=== PATIENT | female | born 1935 | race Caucasian/White ===

== ENCOUNTER → 2016-12-30 | Outpatient (CLI) | payer OTHER, MEDICARE ==
[~2016-12-30] MED LIST: OPTIRAY 320 IV PRN
--- NOTE | 2016-12-30 15:42 | DIAGNOSTIC IMAGING REPORT ---
CT ANGIOGRAPHY OF THE ABDOMEN AND PELVIS WITH CONTRAST WITH BILATERAL LOWER EXTREMITY RUNOFF CLINICAL HISTORY: Abdominal aortic aneurysm. Peripheral arterial disease with claudication. COMPARISON STUDY: No previous studies for comparison. TECHNIQUE: Initially, unenhanced axial images of the abdomen and pelvis and both lower extremity were obtained. Helical axial images of the abdomen and pelvis and both lower extremities were obtained during arterial phase following intravenous injection of 94 cc of Optiray 320 IV. 2 minute delayed phase imaging of the abdomen and pelvis was performed as per the endovascular protocol. Sagittal and coronal reconstructions were viewed as well as maximal intensity projections on an independent 3-D workstation. FINDINGS: There is made of a 5 mm subpleural nodule within the right lower lobe. This is indeterminate although probably benign. There is subtle nodularity of the liver surface. 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 There is no biliary ductal dilatation status post cholecystectomy. The spleen is mildly enlarged. There is no ascites. The adrenal glands and right kidney are unremarkable. There is moderate left renal atrophy. There is a 9 mm calculus within lower pole of the left kidney. There are no ureteral calculi. There is asymmetric enlargement of the left ovary which measures 4.6 x 2.6 cm. No suspicious osseous lesions are present. Mesenteric infiltration is of doubtful significance. No enlarged abdominal or pelvic lymph nodes are present. Note is made of mild aneurysmal dilatation of the distal descending thoracic aorta that measures 4.2 cm. There are postprocedural findings consistent with placement of aortoiliac stent grafts for an infrarenal abdominal aortic aneurysm. Aneurysm sac measures 6.8 x 6.5 cm. There is no evidence for rupture. The iliac limbs are patent. Note is made of an endoleak along the posterior distal aortic component that measures approximately 4 x 1.1 cm. This is likely at the junction of the aortic and iliac limbs. No additional endoleaks are present. 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 There is severe stenosis of the left renal artery. The right superficial femoral artery is occluded at the vessel origin. There is extensive atherosclerotic plaque within the right lower extremity. The right profunda is patent. Reconstitution at the level of the right popliteal artery through collaterals is noted. There is minimal contrast within the proximal to mid right anterior tibial and peroneal arteries. The right posterior tibial artery is likely occluded. The right dorsalis pedis is likely occluded although the CT scanner may have outrun run the bolus. There is moderate plaque within the left common femoral artery. There is severe stenosis of the proximal left superficial femoral artery. The distal left superficial femoral artery is occluded. The left profunda is patent. There is reconstitution at the level of the left popliteal artery. The left anterior tibial, posterior tibial and peroneal arteries are likely patent. Moderate multifocal stenoses are noted within these vessels. Contrast is present within the distal left posterior tibial artery. The left dorsalis pedis is diminutive but likely patent. IMPRESSION: 1. Postprocedural findings consistent with repair of an infrarenal abdominal aortic aneurysm with endovascular aortoiliac stent grafts. 6.8 x 6.5 cm infrarenal abdominal aortic aneurysm sac. 4 x 1.1 cm endoleak along the posterior distal aortic component. This suggests a type III endoleak. No evidence for rupture. 2. Extensive atherosclerotic disease within each lower extremity with occlusion of the bilateral superficial femoral arteries with reconstitution at the level of the bilateral popliteal arteries, as described above. Markedly diminished flow within the right calf vessels, as detailed above. Relatively preserved flow to the left lower extremity. 3. Severe stenosis of the left renal artery. 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 Mild aneurysmal dilatation of the descending thoracic aorta. 4. Asymmetric left ovarian enlargement. A follow-up pelvic ultrasound is recommended. Electronically signed by: Florencio Wynne M.D. 12/30/2016 3:41 PM Dictated Date/Time: 12/30/2016 2:07 PM
== END | disposition home or self-care (01) ==
LOC: C.CTS 12:15
PROVIDERS: ATTEND Surgery Vascular Surgery
DX: I71.4 Abdominal aortic aneurysm, without rupture (principal); Z98.890 Other specified postprocedural states; I70.203 Unspecified atherosclerosis of native arteries of extremities, bilateral legs; I70.1 Atherosclerosis of renal artery; N83.9 Noninflammatory disorder of ovary, fallopian tube and broad ligament, unspecified

== ENCOUNTER → 2017-01-10 | Day surgery (SDC) | payer OTHER, MEDICARE ==
[~2017-01-10] VITALS: Ht 167.6 cm; Wt 108.0 kg
[~2017-01-10] MED LIST changes: +ALBINS/ INH; +ALBINSX; +ALBUAER; +AMLO-110 PO; +ARTI1SOL11 OPB; +ASPI81TA28 PO; +CALC500C3; +CHOL1000 PO; +CLINDAMYCIN 600 MG/54 ML D5W IV SCH; +CYAN100020; +EPP3/2 IM; +FENTANYL CITRATE INJ 50 MCG/1 ML 2 ML VIAL ONE; +GABA-113 PO; +HEPARIN SOD (PORCINE) 1000 UNIT/ML 10 ML VIAL ONE; +KETO0.0216 OP; +MAGN250T11; +MECL1TAB40 PO; +MIDAZOLAM HCL 1 MG/ML 2ML VIAL ONE; +MONT1TAB3 PO; +OMEG10007 PO; -OPTIRAY 320 IV PRN; +PRAM0.129 PO; +SODIUM CHLORIDE 0.9% 1000ML IV SCH; +THYROID DESICCATED; +VITACAP37; +WARF2.5T8 PO; +WARF5TAB7 PO; +potassium citrate
--- NOTE | 2017-01-10 05:54 | History and Physical ---
History & Physical Date of Service Jan 10, 2017. History & Physical CC: Type I endoleak HPI: Ms. Dillon is complaining of discomfort in her right calf. The patient states that back in 2013, she developed toe discoloration on her right foot. She states that after being evaluated by another physician, she ended up being referred to Dr. Gee at [facility] for intervention. She states that she subsequently underwent an endovascular aneurysm repair through puncture or a stent graft was placed, although she had been completely unaware of any aneurysm prior to this. She states before that procedure, she had been having cramping discomfort in her left buttock and thigh, which would limit her ambulation and that after the procedure, symptom went completely away. She also states that her right foot toe healed. She states that she has also been diagnosed for a number of years with neuropathy in her bilateral lower extremities, although they are unsure what has caused it. She also has a diagnosis of COPD and has severe breathing problems and this also limits her ambulation to some extent. She does state to having calf claudication bilaterally and that this occurs with walking approximately 1 block, although her breathing would cause her to stop at approximately 1 block as it is. She states she is never having been told of any arterial disease in her legs prior to this. The patient states that she quit smoking in the year 1999. She also states that she saw Dr. Gee once or twice after her procedure, but has not had any imaging performed of her stent graft for quite a while. She denies other complaints at this time including headaches, fevers, chills, dizziness, chest pain, shortness of breath, abdominal pain, nausea, vomiting, diarrhea, constipation, dysuria, hematuria, rest pain, nonhealing wounds or ulcers. She does admit a discomfort in her right posterior calf when she presses on the area or when it is up against the footrest on the chair. 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 CTA confirmed a significant endoleak present. ALLERGIES: INCLUDE CRESTOR, DEMEROL, LIPITOR, MORPHINE AND PENICILLIN. HOME MEDICATIONS: Reconciled on the chart and include albuterol for nebulization, amlodipine, artificial tears, aspirin, calcium carbonate, EpiPen 2 pack, fish oil, gabapentin, Genteal ophthalmic gel, magnesium gluconate, meclizine, Mirapex, Nature-Throid, potassium citrate, ProAir HFA inhaler, Singulair, vitamin B12, vitamin D3, vitamin E, Welchol and Zaditor ophthalmic solution. PAST MEDICAL HISTORY: Positive for abdominal aortic aneurysm status post repair , cervical spinal stenosis, chronic back pain, chronic obstructive pulmonary disease, degenerative disk disease, hypothyroidism, irritable bowel syndrome, idiopathic neuropathy, restless leg syndrome, sleep apnea, hypertension. PAST SURGICAL HISTORY: Positive for the abdominal aortic aneurysm endovascular repair in 2014, cataract extractions, cholecystectomy, colonoscopy with polyp removal, dilatation and curettage and excision of lipoma on the forehead and the leg, left wrist open reduction internal fixation, ligament repair in the right knee. SOCIAL HISTORY: Positive for a past history of tobacco use. The patient was smoking 1 pack per day until the year 1999. She says she occasionally has 1 alcoholic beverage, but does not indulge. FAMILY HISTORY: Positive for heart disease, hypertension, celiac sprue, lung disease, arthritis, schizophrenia, glaucoma. REVIEW OF SYSTEMS: Negative for fatigue, fevers, sweats, weight loss, abnormal moles or rashes, vision changes or photophobia, ear pain, sinus problems or sore throat. She does admit to chronic cough and dyspnea on exertion, which is chronic for her. She denies any worsening of this. She denies any chest pain or edema. She denies abdominal pain, nausea, vomiting, diarrhea, constipation, dysuria, hematuria, muscle weakness, headaches, dizziness, or seizures. PHYSICAL EXAMINATION: Her vital signs today were as follows: Blood pressure 128/78 in the right arm, 134/70 in the left, heart rate 72, and oxygen saturation 96% on room air. The patient is 165.1 cm tall and weighs 107.5 kg. Constitutional: In general, the patient is an obese, chronically ill-appearing , elderly female in no acute distress. She ambulates with a cane. She is active, alert and oriented x4 with normal recent and remote memory. Head is normocephalic and atraumatic. Eyes are EOMI. ENMT exam demonstrates no hearing loss, rhinorrhea or pharyngeal erythema. Neck is supple, nontender with midline trachea without masses or crepitus. Lung exam demonstrates no dyspnea, but are significantly decreased throughout. She appears to be breathing rather shallowly. She has no use of accessory muscles and does demonstrate an occasional wheeze. Cardiovascular demonstrates a regular rate and rhythm with a 2/6 systolic ejection murmur. Peripheral pulses are full and equal in all extremities unless otherwise noted, specifically they are normal in her carotid, brachial and radial pulses. Femoral pulses are +1. Distal lower extremity pulses are nonpalpable. She has capillary refill of 4 seconds bilaterally. There is no sign of distal ischemia, discoloration or ulcerations. The patient demonstrates no bruit in her carotid, abdominal or femoral area. Abdomen is soft, nontender with normoactive bowel sounds in all 4 quadrants without guarding or rebound. There is no flank or CVA tenderness. Musculoskeletal exam demonstrates normal tone and strength for age. Bilateral upper extremities demonstrate no cyanosis, edema, clubbing, varicosities or ulcers. Bilateral lower extremities do demonstrate trace to 1+ edema with some skin changes consistent with chronic venous insufficiency. In addition, she does have some visible varicosities. None of these are tender to palpation. The posteromedial proximal calf is mildly tender to palpation, but there is no erythema, no palpable mass, no firm hard cord, no warmth. Neurologic: The patient has grossly intact cranial nerves and grossly intact sensation. ASSESSMENT: 1. Claudication. 2. History of peripheral arterial disease. 3. History of abdominal aortic aneurysm status post percutaneous endovascular aneurysm repair with a Type I enodleak. PLAN: Patient is admitted for arteriography. I have discussed the risks options and benefits of the procedure with the patient. The patient understands the risks options and benefits and agrees to the procedure.
[2017-01-10 05:56] VITALS: BP 172/85; PULSE 64; TEMP 36.7; O2SAT 96; Ht 167.6 cm; Wt 108.0 kg
[2017-01-10 06:31] LABS: CREATININE 1.3 mg/dl (0.60-1.20)
--- NOTE | 2017-01-10 07:19 | Procedure Note ---
Pre-Mod Sedation Assessment General Date of Moderate Sedation: Jan 10, 2017. Vital Signs: Vital Signs Past 12 Hours Date Time Temp Pulse Resp B/P (MAP) Pulse Ox O2 Delivery O2 Flow Rate FiO2 01/10/17 05:56 36.7 64 20 172/85 (114) 96 Room Air Pre-Sedation Airway Assessment Mallampati Classification: Class I ASA Classification: Class II Notes The planned sedation has been discussed with the patient and consent obtained. I have identified the patient, determined the appropriateness of sedation and have assessed the patient immediately prior to the procedure. All medicine(s) and interventions are by my order.
--- NOTE | 2017-01-10 07:19 | History & Physical Bridge Note ---
H&P Re-Evaluation Bridge Note: I have examined the patient, reviewed the History & Physical and in the interval since the performance of the History & Physical I have noted the following changes of clinical significance: No changes noted
[2017-01-10 07:21] LABS: INR 3.4 (0.9-1.1); PARTIAL THROMBOPLASTIN RATIO 1.9
--- NOTE | 2017-01-10 07:42 | Progress Note ---
Progress Note Date of Service Jan 10, 2017. Progress Note INR 3.4 Too high for arteriography due to possible bleeding from puncture site. She understands We will reschedule
== END | disposition home or self-care (01) ==
LOC: C.ACU 04:48
PROVIDERS: ATTEND Surgery Vascular Surgery
DX: T82.898A Other specified complication of vascular prosthetic devices, implants and grafts, initial encounter (principal); Z53.09 Procedure and treatment not carried out because of other contraindication; Y83.1 Surgical operation with implant of artificial internal device as the cause of abnormal reaction of the patient, or of later complication, without mention of misadventure at the time of the procedure

== ENCOUNTER 2017-01-17 05:10 | Day surgery (SDC) | payer OTHER, MEDICARE ==
[2017-01-17] VITALS (8 sets, daily range): BP systolic 121–139; BP diastolic 72–79; PULSE 58–66; TEMP 36.6–36.7; O2SAT 92–95; Ht 167.6 cm; Wt 106.0 kg
[~2017-01-17] VITALS: Ht 167.6 cm; Wt 106.0 kg
[~2017-01-17 05:10] MED LIST changes: -ALBINSX; -CLINDAMYCIN 600 MG/54 ML D5W IV SCH; -FENTANYL CITRATE INJ 50 MCG/1 ML 2 ML VIAL ONE; -HEPARIN SOD (PORCINE) 1000 UNIT/ML 10 ML VIAL ONE; -MIDAZOLAM HCL 1 MG/ML 2ML VIAL ONE; -SODIUM CHLORIDE 0.9% 1000ML IV SCH
--- NOTE | 2017-01-17 05:53 | History and Physical ---
History & Physical Date of Service Jan 17, 2017. History & Physical CC: Type I endoleak HPI: Ms. Dillon is complaining of discomfort in her right calf. The patient states that back in 2013, she developed toe discoloration on her right foot. She states that after being evaluated by another physician, she ended up being referred to Dr. Gee at [facility] for intervention. She states that she subsequently underwent an endovascular aneurysm repair through puncture or a stent graft was placed, although she had been completely unaware of any aneurysm prior to this. She states before that procedure, she had been having cramping discomfort in her left buttock and thigh, which would limit her ambulation and that after the procedure, symptom went completely away. She also states that her right foot toe healed. She states that she has also been diagnosed for a number of years with neuropathy in her bilateral lower extremities, although they are unsure what has caused it. She also has a diagnosis of COPD and has severe breathing problems and this also limits her ambulation to some extent. She does state to having calf claudication bilaterally and that this occurs with walking approximately 1 block, although her breathing would cause her to stop at approximately 1 block as it is. She states she is never having been told of any arterial disease in her legs prior to this. The patient states that she quit smoking in the year 1999. She also states that she saw Dr. Gee once or twice after her procedure, but has not had any imaging performed of her stent graft for quite a while. She denies other complaints at this time including headaches, fevers, chills, dizziness, chest pain, shortness of breath, abdominal pain, nausea, vomiting, diarrhea, constipation, dysuria, hematuria, rest pain, nonhealing wounds or ulcers. She does admit a discomfort in her right posterior calf when she presses on the area or when it is up against the footrest on the chair. 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 CTA confirmed a significant endoleak present. ALLERGIES: INCLUDE CRESTOR, DEMEROL, LIPITOR, MORPHINE AND PENICILLIN. HOME MEDICATIONS: Reconciled on the chart and include albuterol for nebulization, amlodipine, artificial tears, aspirin, calcium carbonate, EpiPen 2 pack, fish oil, gabapentin, Genteal ophthalmic gel, magnesium gluconate, meclizine, Mirapex, Nature-Throid, potassium citrate, ProAir HFA inhaler, Singulair, vitamin B12, vitamin D3, vitamin E, Welchol and Zaditor ophthalmic solution. PAST MEDICAL HISTORY: Positive for abdominal aortic aneurysm status post repair , cervical spinal stenosis, chronic back pain, chronic obstructive pulmonary disease, degenerative disk disease, hypothyroidism, irritable bowel syndrome, idiopathic neuropathy, restless leg syndrome, sleep apnea, hypertension. PAST SURGICAL HISTORY: Positive for the abdominal aortic aneurysm endovascular repair in 2014, cataract extractions, cholecystectomy, colonoscopy with polyp removal, dilatation and curettage and excision of lipoma on the forehead and the leg, left wrist open reduction internal fixation, ligament repair in the right knee. SOCIAL HISTORY: Positive for a past history of tobacco use. The patient was smoking 1 pack per day until the year 1999. She says she occasionally has 1 alcoholic beverage, but does not indulge. FAMILY HISTORY: Positive for heart disease, hypertension, celiac sprue, lung disease, arthritis, schizophrenia, glaucoma. REVIEW OF SYSTEMS: Negative for fatigue, fevers, sweats, weight loss, abnormal moles or rashes, vision changes or photophobia, ear pain, sinus problems or sore throat. She does admit to chronic cough and dyspnea on exertion, which is chronic for her. She denies any worsening of this. She denies any chest pain or edema. She denies abdominal pain, nausea, vomiting, diarrhea, constipation, dysuria, hematuria, muscle weakness, headaches, dizziness, or seizures. PHYSICAL EXAMINATION: Her vital signs today were as follows: Blood pressure 128/78 in the right arm, 134/70 in the left, heart rate 72, and oxygen saturation 96% on room air. The patient is 165.1 cm tall and weighs 107.5 kg. Constitutional: In general, the patient is an obese, chronically ill-appearing , elderly female in no acute distress. She ambulates with a cane. She is active, alert and oriented x4 with normal recent and remote memory. Head is normocephalic and atraumatic. Eyes are EOMI. ENMT exam demonstrates no hearing loss, rhinorrhea or pharyngeal erythema. Neck is supple, nontender with midline trachea without masses or crepitus. Lung exam demonstrates no dyspnea, but are significantly decreased throughout. She appears to be breathing rather shallowly. She has no use of accessory muscles and does demonstrate an occasional wheeze. Cardiovascular demonstrates a regular rate and rhythm with a 2/6 systolic ejection murmur. Peripheral pulses are full and equal in all extremities unless otherwise noted, specifically they are normal in her carotid, brachial and radial pulses. Femoral pulses are +1. Distal lower extremity pulses are nonpalpable. She has capillary refill of 4 seconds bilaterally. There is no sign of distal ischemia, discoloration or ulcerations. The patient demonstrates no bruit in her carotid, abdominal or femoral area. Abdomen is soft, nontender with normoactive bowel sounds in all 4 quadrants without guarding or rebound. There is no flank or CVA tenderness. Musculoskeletal exam demonstrates normal tone and strength for age. Bilateral upper extremities demonstrate no cyanosis, edema, clubbing, varicosities or ulcers. Bilateral lower extremities do demonstrate trace to 1+ edema with some skin changes consistent with chronic venous insufficiency. In addition, she does have some visible varicosities. None of these are tender to palpation. The posteromedial proximal calf is mildly tender to palpation, but there is no erythema, no palpable mass, no firm hard cord, no warmth. Neurologic: The patient has grossly intact cranial nerves and grossly intact sensation. ASSESSMENT: 1. Claudication. 2. History of peripheral arterial disease. 3. History of abdominal aortic aneurysm status post percutaneous endovascular aneurysm repair with a Type I enodleak. PLAN: Patient is admitted for arteriography. I have discussed the risks options and benefits of the procedure with the patient. The patient understands the risks options and benefits and agrees to the procedure.
[2017-01-17] MEDS: SODIUM CHLORIDE 0.9% 1000ML 1,000 ML IV SCH ×2 (06:00→06:52)
[2017-01-17] MEDS ORDERED: CLINDAMYCIN 600 MG/54 ML D5W IV SCH (06:00)
[2017-01-17 06:07] LABS: INR 2.4 (0.9-1.1); PTT PATIENT 44.5 SECONDS (21.0-31.0)
[2017-01-17 06:19] LABS: BLOOD UREA NITROGEN 16 mg/dl (7-18); CREATININE 1.25 mg/dl (0.60-1.20)
--- NOTE | 2017-01-17 07:37 | Procedure Note ---
Pre-Mod Sedation Assessment General Date of Moderate Sedation: Jan 17, 2017. Vital Signs: Vital Signs Past 12 Hours Date Time Temp Pulse Resp B/P (MAP) Pulse Ox O2 Delivery O2 Flow Rate FiO2 01/17/17 06:14 36.7 65 18 132/75 (94) 93 Room Air Pre-Sedation Airway Assessment Oral Cavity: Dentures Smoking Status: Former Smoker Mallampati Classification: Class I ASA Classification: Class II Notes The planned sedation has been discussed with the patient and consent obtained. I have identified the patient, determined the appropriateness of sedation and have assessed the patient immediately prior to the procedure. All medicine(s) and interventions are by my order.
[2017-01-17] MEDS ORDERED: MIDAZOLAM HCL 1 MG/ML 2ML VIAL ONE (07:38)
[2017-01-17] MEDS ORDERED: HEPARIN SOD (PORCINE) 1000 UNIT/ML 10 ML VIAL ONE (07:38)
[2017-01-17] MEDS ORDERED: FENTANYL CITRATE INJ 50 MCG/1 ML 2 ML VIAL ONE (07:38)
[2017-01-17] MEDS ORDERED: FENTANYL CITRATE INJ 50 MCG/1 ML 2 ML VIAL IV ONE (08:21)
[2017-01-17] MEDS ORDERED: MIDAZOLAM HCL 1 MG/ML 2ML VIAL IV ONE (08:21)
[2017-01-17] MEDS ORDERED: LIDOCAINE HCL 1% 20 ML VIAL INJ ONE (08:32)
[2017-01-17] MEDS ORDERED: IODIXANOL (VISIPAQUE) 270 MG/ML 150ML FLUSH ONE (08:58)
--- NOTE | 2017-01-17 09:03 | [facility] Post Operative Brief Note ---
Immediate Operative Summary Operative Date Jan 17, 2017. Pre-Operative Diagnosis type 3 endo leak Post-Operative Diagnosis same Procedure(s) Performed Aortogram, Mechanical Closure Right Femoral Artery, Moderate Concious Sedation [address] 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
--- NOTE | 2017-01-17 09:07 | Discharge Instructions ---
Discharge Instructions Date of Service Jan 17, 2017. Visit Reason for Visit: Type 1 Endoleak Discharge Discharge Diagnosis / Problem: Endoleak of AAA endograft Discharge Goals Goal(s): Therapeutic intervention Activity Recommendations Activity Limitations: per Instructions/Follow-up section Anesthesia . Post Anesthesia Instructions: If you have had General Anesthesia or IV Sedation: * Do not drive today. * Resume driving when surgeon permits. * Do not make important decisions or sign legal documents today. * Call surgeon for: 1. Temperature elevations greater than 101 degrees F. 2. Uncontrollable pain. 3. Excessive bleeding. 4. Persistent nausea and vomiting. 5. Medication intolerance (nausea, vomiting or rash). * For nausea and vomiting use only clear liquids such as: tea, soda, bouillon until nausea subsides, then gradually increase diet as tolerated. * If you have any concerns or questions, call your surgeon's office. If physician is unavailable and it is an emergency, call 911 or go to the nearest emergency room. . Instructions / Follow-Up Instructions / Follow-Up Call [phone] to schedule a follow up appointment if one not already scheduled. SPECIAL CARE INSTRUCTIONS: Medications: * Continue to take your medications as directed. If you have been given a prescription for Plavix, please fill it immediately and take as directed. Incision Care: * Your puncture site may have some bruising and minor swelling for about one week. * You will have a small dressing covering your puncture site. You may remove the dressing after 24 hours and shower. You may let the warm soapy water run over it, but be sure to dry the puncture site well and keep it dry. * DO NOT IMMERSE THE INCISION IN A TUB/POOL/etc. UNTIL HEALED. * Puncture sites should be kept covered with a band-aid until it begins to heal. Restrictions: * Depending on whether you leg or arm was punctured to access the arteries, you will be required to lay flat, hold your arm still, or both, for about 4 hours after the procedure to prevent bleeding. * Limit your activity for the first 48 hours. You may walk and go up and down steps. Avoid excessive bending or movement at the puncture site. Possible Complications: * Excessive Swelling - after blood flow is improved you may notice increased swelling in the lower legs. This is a normal response. This usually depends on the amount of blockages in the leg, how long they have been there prior to your procedure and how much blood flow was restored. Elevating your legs will help to improve this. Please notify our office ([phone] ) if the swelling does not go away after lying in bed overnight. * Infection/Drainage/Bleeding - Drainage or bleeding from the puncture site should be minimal. If you have excessive bleeding or drainage, call our office ([phone]) right away. * Pain - You may experience some mild pain or soreness at your puncture site. If your pain does not improve, please contact our office ([phone]). Call your doctor and seek emergent treatment if you develop: * Temperature above 101 degrees * Any fever or chills * Any redness or purulent drainage from the puncture site * Any new dusky/blue colored toes or feet with coolness or sharp or aching pain. SKIN IRRITATION: * You may experience some redness and/or swelling in the area where radiation was administered. If any skin irritation occurs, please contact your family physician. FOLLOW UP VISIT: Keep any scheduled doctor appointments. Diet Recommendations Recommended Home Diet: resume previous diet Procedures Procedures Performed: Aortogram, Mechanical Closure Right Femoral Artery, Moderate Concious Sedation 0821 to 0905 Pending Studies Studies pending at discharge: no Medical Emergencies . Who to Call and When: Medical Emergencies: If at any time you feel your situation is an emergency, please call 911 immediately. . Non-Emergent Contact Non-Emergency issues call your: Surgeon . . "Provider Documentation" section prepared by Jay Hopper. .
--- NOTE | 2017-01-17 09:39 | DIAGNOSTIC IMAGING REPORT ---
DATE OF PROCEDURE: 01/17/2017 PREOPERATIVE DIAGNOSIS: Type 1 endoleak. POSTOPERATIVE DIAGNOSIS: Same. SURGEON: Dr. Jay Hopper. [employer]: Dr. Ludy Roque. PROCEDURE: 1. Ultrasound-guided percutaneous access of left common femoral artery. 2. Aortogram. 3. Percutaneous closure with a star device. 4. Conscious sedation for 45 minutes. ESTIMATED BLOOD LOSS: 3 mL COMPLICATIONS: None apparent. CONDITION: Stable to PACU. FLUOROSCOPY TIME: 3.7 minutes. Milligrays 576. CONTRAST: 120 mL URINE OUTPUT: Not recorded. ANESTHESIA: Local plus conscious sedation. INDICATIONS: Ms. Dillon is an 81-year-old female who underwent endovascular abdominal aortic repair many years ago. She underwent a followup CTA, which demonstrated a large endoleak. She presents today to further evaluate the source of her endoleak. She was advised of the risks and benefits of undergoing the procedure and agrees to undergo this procedure. DESCRIPTION OF PROCEDURE: The patient was brought into the operative suite. She was prepped and draped in the usual fashion. A timeout occurred. The right common femoral artery was located on ultrasound. Local anesthetic was instilled and percutaneous access was obtained. A 5-Divehi sheath was placed and a Glidewire was advanced. The iliacs were tortuous and an angled glide catheter was used to cannulate the iliac limb. A wire was advanced through the graft. The angled glide catheter was exchanged for a pigtail. The wire was removed and several angiograms were obtained. This showed that there was no type 1A leak. There appears to be a type 3 endoleak at the gate of the iliac limb and the main body An angiogram was taken demonstrating that the sheath was in the left common femoral artery and all catheters were removed and a StarClose device was used to close the arteriotomy. The pressure was held. Hemostasis was obtained and the patient was then transferred to the recovery room in stable condition Dr. Jay Hopper was present for the entirety of this case. [facility]
[2017-01-17] MEDS ORDERED: ARISTA ABSORBABLE HEMOSTAT 3GM TOP ONE (10:11)
== END 2017-01-17 13:05 | disposition home or self-care (01) ==
LOC: C.ACU 05:10
PROVIDERS: ATTEND Surgery Vascular Surgery
DX: T82.898A Other specified complication of vascular prosthetic devices, implants and grafts, initial encounter (principal); Y84.8 Other medical procedures as the cause of abnormal reaction of the patient, or of later complication, without mention of misadventure at the time of the procedure; I73.9 Peripheral vascular disease, unspecified; J44.9 Chronic obstructive pulmonary disease, unspecified; E03.9 Hypothyroidism, unspecified; I10 Essential (primary) hypertension; Z79.899 Other long term (current) drug therapy; Z88.0 Allergy status to penicillin; Z88.5 Allergy status to narcotic agent; Z79.82 Long term (current) use of aspirin; Z98.890 Other specified postprocedural states; Z98.49 Cataract extraction status, unspecified eye; Z90.49 Acquired absence of other specified parts of digestive tract; Z87.891 Personal history of nicotine dependence; Z82.49 Family history of ischemic heart disease and other diseases of the circulatory system; Z81.8 Family history of other mental and behavioral disorders; Z83.511 Family history of glaucoma; Z82.61 Family history of arthritis

== ENCOUNTER 2017-03-25 05:15 | Inpatient (IN) | payer OTHER, MEDICARE ==
[2017-02-27 14:03] VITALS: BMI 37.0
--- NOTE | 2017-02-27 14:48 | PAT Medication Instructions ---
Service Date Feb 27, 2017. Current Home Medication List Albuterol Sulf (Proventil 0.083% 2.5MG/3ML), 2.5 MG INH Q6 PRN for Wheezing Albuterol Sulfate (Proventil Hfa), 2 PUFF QID PRN for SOB/Wheezing Amlodipine (Norvasc), 5 MG PO QAM Artificial Tear Solution (Genteal Tears Liquid Drop 0.1-0.2-0.3 %), 1 DROP OPB HS Aspirin (Aspirin Ec), 81 MG PO QAM Calcium Carbonate (Tums), 1 TAB UD PRN for HEARTBURN Cholecalciferol (Vitamin D3), 1 TAB PO QAM Cyanocobalamin (Vitamin B12), QAM Epinephrine (Epipen), 0.3 MG IM UD Fish Oil ([place]-3), 1 CAP PO QAM Gabapentin (Neurontin), 300 MG PO HS Ketotifen Fumarate (Ophth) (Zaditor 0.025% Oph), 1 DROP OP Q12H PRN for DRY EYES Magnesium Gluconate (Magnesium Gluconate), QAM Meclizine HCl (Meclizine HCl), 2 TAB PO TID PRN for Itching Montelukast Sodium (Singulair), 1 TAB PO HS Pramipexole (Mirapex), 0.125 MG PO BID Vitamin E (E-400), 1 CAP QDL Warfarin Sod (Jantoven), 5 MG PO 2XWK Warfarin Sod (Jantoven), 2.5 MG PO 5XWK [potassium citrate], 10 MEQ BID [thyroid desiccated], 65 MG QAM Medication Instructions For Your Scheduled Surgery - Check with surgeon and prescribing physician for instructions: Warfarin Sod (Jantoven), 5 MG PO 2XWK Warfarin Sod (Jantoven), 2.5 MG PO 5XWK - Continue as directed: Epinephrine (Epipen), 0.3 MG IM UD - Hold the following medications 2 weeks prior to surgery: Vitamin E (E-400), 1 CAP QDL Fish Oil ([place]-3), 1 CAP PO QAM - Hold the following medications 24 hours prior to surgery: Pramipexole (Mirapex), 0.125 MG PO BID - Hold the following medications the morning of surgery: [potassium citrate], 10 MEQ BID Magnesium Gluconate (Magnesium Gluconate), QAM Cholecalciferol (Vitamin D3), 1 TAB PO QAM Cyanocobalamin (Vitamin B12), QAM Calcium Carbonate (Tums), 1 TAB UD PRN for HEARTBURN - Take the following medications the morning of surgery with a sip of water: [thyroid desiccated], 65 MG QAM Meclizine HCl (Meclizine HCl), 2 TAB PO TID PRN for Itching (if needed) Ketotifen Fumarate (Ophth) (Zaditor 0.025% Oph), 1 DROP OP Q12H PRN for DRY EYES (if needed) Amlodipine (Norvasc), 5 MG PO QAM Albuterol Sulf (Proventil 0.083% 2.5MG/3ML), 2.5 MG INH Q6 PRN for Wheezing (if needed) Albuterol Sulfate (Proventil Hfa), 2 PUFF QID PRN for SOB/Wheezing (if needed) Aspirin (Aspirin Ec), 81 MG PO QAM - Take the following medications as scheduled the night before surgery: [potassium citrate], 10 MEQ BID Montelukast Sodium (Singulair), 1 TAB PO HS Meclizine HCl (Meclizine HCl), 2 TAB PO TID PRN for Itching (if needed) Ketotifen Fumarate (Ophth) (Zaditor 0.025% Oph), 1 DROP OP Q12H PRN for DRY EYES (if needed) Gabapentin (Neurontin), 300 MG PO HS Calcium Carbonate (Tums), 1 TAB UD PRN for HEARTBURN (if needed) Artificial Tear Solution (Genteal Tears Liquid Drop 0.1-0.2-0.3 %), 1 DROP OPB HS Albuterol Sulf (Proventil 0.083% 2.5MG/3ML), 2.5 MG INH Q6 PRN for Wheezing (if needed) Albuterol Sulfate (Proventil Hfa), 2 PUFF QID PRN for SOB/Wheezing (if needed) If you have any questions please call us at [phone] or [phone] or [phone]
--- NOTE | 2017-02-27 15:18 | DIAGNOSTIC IMAGING REPORT ---
CHEST 2 VIEWS ROUTINE CLINICAL HISTORY: PAT preoperative evaluation COMPARISON STUDY: No previous studies for comparison. FINDINGS: Mild cardia megaly. Moderate tortuosity thoracic aorta. Diaphragms smooth. Lungs are clear. Diaphragms are smooth. IMPRESSION: Mild cardia megaly. Otherwise negative study. The above report was generated using voice recognition software. It may contain grammatical, syntax or spelling errors. Electronically signed by: Cm Matthews M.D. 02/27/2017 3:17 PM Dictated Date/Time: 02/27/2017 3:16 PM
[2017-02-27 15:22] LABS: BASO % 0.6 %; BASO ABS # 0.03 K/uL (0-0.2); EOS % 2.3 %; EOS ABS # 0.11 K/uL (0-0.5); HEMATOCRIT 41.7 % (37-47); HEMOGLOBIN 13.1 g/dL (12.0-16.0); IG# 0.01 K/uL (0.00-0.02); LYMPH % 12.4 %; MEAN CELL VOLUME 80.8 fL (80-100); MEAN CORPUSCULAR HEMOGLOBIN 25.4 pg (25-34); MEAN CORPUSCULAR HGB CONC 31.4 g/dl (32-36); MEAN PLATELET VOLUME 9.3 fL (7.4-10.4); MONO % 6.6 %; MONO ABS # 0.32 K/uL (0.11-0.59); NEUT % 77.9 %; NEUT ABS # 3.78 K/uL (1.4-6.5); PLATELET COUNT 139 K/uL (130-400); RED CELL DISTRIBUTION WIDTH CV 15.5 % (11.5-14.5); WHITE BLOOD COUNT 4.85 K/uL (4.8-10.8)
[2017-02-27 16:19] LABS: CREATININE 1.27 mg/dl (0.60-1.20); POTASSIUM 4.7 mmol/L (3.5-5.1)
--- NOTE | 2017-03-24 16:20 | History and Physical ---
History & Physical Date of Service Mar 24, 2017. History & Physical CC: Type I endoleak HPI: Ms. Dillon is complaining of discomfort in her right calf. The patient states that back in 2013, she developed toe discoloration on her right foot. She states that after being evaluated by another physician, she ended up being referred to Dr. Gee at [facility] for intervention. She states that she subsequently underwent an endovascular aneurysm repair through puncture or a stent graft was placed, although she had been completely unaware of any aneurysm prior to this. She states before that procedure, she had been having cramping discomfort in her left buttock and thigh, which would limit her ambulation and that after the procedure, symptom went completely away. She also states that her right foot toe healed. She states that she has also been diagnosed for a number of years with neuropathy in her bilateral lower extremities, although they are unsure what has caused it. She also has a diagnosis of COPD and has severe breathing problems and this also limits her ambulation to some extent. She does state to having calf claudication bilaterally and that this occurs with walking approximately 1 block, although her breathing would cause her to stop at approximately 1 block as it is. She states she is never having been told of any arterial disease in her legs prior to this. The patient states that she quit smoking in the year 1999. She also states that she saw Dr. Gee once or twice after her procedure, but has not had any imaging performed of her stent graft for quite a while. She denies other complaints at this time including headaches, fevers, chills, dizziness, chest pain, shortness of breath, abdominal pain, nausea, vomiting, diarrhea, constipation, dysuria, hematuria, rest pain, nonhealing wounds or ulcers. She does admit a discomfort in her right posterior calf when she presses on the area or when it is up against the footrest on the chair. 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 CTA confirmed a significant endoleak present as well as arteriography. ALLERGIES: INCLUDE CRESTOR, DEMEROL, LIPITOR, MORPHINE AND PENICILLIN. HOME MEDICATIONS: Reconciled on the chart and include albuterol for nebulization, amlodipine, artificial tears, aspirin, calcium carbonate, EpiPen 2 pack, fish oil, gabapentin, Genteal ophthalmic gel, magnesium gluconate, meclizine, Mirapex, Nature-Throid, potassium citrate, ProAir HFA inhaler, Singulair, vitamin B12, vitamin D3, vitamin E, Welchol and Zaditor ophthalmic solution. PAST MEDICAL HISTORY: Positive for abdominal aortic aneurysm status post repair , cervical spinal stenosis, chronic back pain, chronic obstructive pulmonary disease, degenerative disk disease, hypothyroidism, irritable bowel syndrome, idiopathic neuropathy, restless leg syndrome, sleep apnea, hypertension. PAST SURGICAL HISTORY: Positive for the abdominal aortic aneurysm endovascular repair in 2013, cataract extractions, cholecystectomy, colonoscopy with polyp removal, dilatation and curettage and excision of lipoma on the forehead and the leg, left wrist open reduction internal fixation, ligament repair in the right knee. SOCIAL HISTORY: Positive for a past history of tobacco use. The patient was smoking 1 pack per day until the year 1999. She says she occasionally has 1 alcoholic beverage, but does not indulge. FAMILY HISTORY: Positive for heart disease, hypertension, celiac sprue, lung disease, arthritis, schizophrenia, glaucoma. REVIEW OF SYSTEMS: Negative for fatigue, fevers, sweats, weight loss, abnormal moles or rashes, vision changes or photophobia, ear pain, sinus problems or sore throat. She does admit to chronic cough and dyspnea on exertion, which is chronic for her. She denies any worsening of this. She denies any chest pain or edema. She denies abdominal pain, nausea, vomiting, diarrhea, constipation, dysuria, hematuria, muscle weakness, headaches, dizziness, or seizures. PHYSICAL EXAMINATION: Her vital signs today were as follows: Blood pressure 128/78 in the right arm, 134/70 in the left, heart rate 72, and oxygen saturation 96% on room air. The patient is 165.1 cm tall and weighs 107.5 kg. Constitutional: In general, the patient is an obese, chronically ill-appearing , elderly female in no acute distress. She ambulates with a cane. She is active, alert and oriented x4 with normal recent and remote memory. Head is normocephalic and atraumatic. Eyes are EOMI. ENMT exam demonstrates no hearing loss, rhinorrhea or pharyngeal erythema. Neck is supple, nontender with midline trachea without masses or crepitus. Lung exam demonstrates no dyspnea, but are significantly decreased throughout. She appears to be breathing rather shallowly. She has no use of accessory muscles and does demonstrate an occasional wheeze. Cardiovascular demonstrates a regular rate and rhythm with a 2/6 systolic ejection murmur. Peripheral pulses are full and equal in all extremities unless otherwise noted, specifically they are normal in her carotid, brachial and radial pulses. Femoral pulses are +1. Distal lower extremity pulses are nonpalpable. She has capillary refill of 4 seconds bilaterally. There is no sign of distal ischemia, discoloration or ulcerations. The patient demonstrates no bruit in her carotid, abdominal or femoral area. Abdomen is soft, nontender with normoactive bowel sounds in all 4 quadrants without guarding or rebound. There is no flank or CVA tenderness. Musculoskeletal exam demonstrates normal tone and strength for age. Bilateral upper extremities demonstrate no cyanosis, edema, clubbing, varicosities or ulcers. Bilateral lower extremities do demonstrate trace to 1+ edema with some skin changes consistent with chronic venous insufficiency. In addition, she does have some visible varicosities. None of these are tender to palpation. The posteromedial proximal calf is mildly tender to palpation, but there is no erythema, no palpable mass, no firm hard cord, no warmth. Neurologic: The patient has grossly intact cranial nerves and grossly intact sensation. ASSESSMENT: Claudication. History of peripheral arterial disease. History of abdominal aortic aneurysm status post percutaneous endovascular aneurysm repair with a Type I endoleak. PLAN: Patient is admitted for repair of her Type I endoleak with embolization of left iliac and cross femoral bypass. I have discussed the risks options and benefits of the procedure with the patient. The patient understands the risks options and benefits and agrees to the procedure.
[~2017-03-25] VITALS: Ht 153.7 cm; Wt 109.7 kg
[2017-03-25] VITALS (11 sets, daily range): BP systolic 93–171; BP diastolic 44–96; PULSE 65–76; TEMP 36.6–36.7; O2SAT 92–98; Ht 153.7 cm; Wt 109.7 kg
[~2017-03-25 05:15] MED LIST changes: -CYAN100020; +CYAN100020 PO; -MAGN250T11; +MAGN250T11 PO; +PRAM0.1212 PO; -PRAM0.129 PO; -THYROID DESICCATED; +THYROID DESICCATED PO; -VITACAP37; +VITACAP37 PO; -potassium citrate; +potassium citrate PO
[2017-03-25 05:57] LABS: INR 1.3 (0.9-1.1); PTT PATIENT 35.5 SECONDS (21.0-31.0)
[2017-03-25] MEDS ORDERED: CLINDAMYCIN 600 MG/54 ML D5W IV SCH (06:00)
[2017-03-25] MEDS ORDERED: LACTATED RINGER'S 1000ML 1,000 ML IV SCH ×2 (06:00)
[2017-03-25] MEDS ORDERED: ONDANSETRON INJ 2 MG/ML 2 ML VIAL IV PRN ×2 (06:15→12:45)
[2017-03-25] MEDS ORDERED: FENTANYL CITRATE INJ 50 MCG/1 ML 2 ML VIAL IV PRN (06:15)
[2017-03-25] MEDS ORDERED: EpHEDrine SULFATE INJ 50 MG/ML AMP IV PRN (06:15)
[2017-03-25] MEDS ORDERED: HYDROmorphone INJ 1 MG/ML SYR IV PRN (06:15)
[2017-03-25] MEDS ORDERED: PHENYLEPHRINE 100MCG/ML 5ML SYR IV PRN (06:15)
[2017-03-25] MEDS ORDERED: ATROPINE SULFATE 0.1 MG/ML 5ML SYR IV PRN (06:15)
[2017-03-25] MEDS ORDERED: ENOX30IN4 SQ (06:32)
[2017-03-25] MEDS ORDERED: PROPOFOL IV EMULSION 10 MG/ML 20 ML VIAL IV ONE (06:54)
[2017-03-25] MEDS ORDERED: LIDOCAINE HCL 2% 2 ML VIAL (20MG/ML) ONE (06:54)
[2017-03-25] MEDS ORDERED: FENTANYL CITRATE INJ 50 MCG/1 ML 2 ML VIAL ONE ×3 (06:54→13:43)
[2017-03-25] MEDS ORDERED: GELATIN SPONGE SZ 100 ONE (07:13)
[2017-03-25] MEDS ORDERED: CEFAZOLIN SOD 1 GM VIAL ONE (07:13)
[2017-03-25] MEDS ORDERED: LIDOCAINE/EPINEPHRINE 1% 20 ML VIAL ONE (07:14)
[2017-03-25] MEDS ORDERED: BUPIVACAINE 0.5 % 5 MG/1 ML MPF 30ML VIAL ONE (07:14)
[2017-03-25] MEDS ORDERED: HEPARIN SOD (PORCINE) 1000 UNIT/ML 10 ML VIAL ONE ×3 (07:14→10:47)
[2017-03-25] MEDS ORDERED: ONDANSETRON INJ 2 MG/ML 2 ML VIAL ONE (09:06)
[2017-03-25] MEDS ORDERED: GLYCOPYRROLATE INJ 0.2 MG/ML VIAL ONE (09:06)
[2017-03-25] MEDS ORDERED: EpHEDrine SULFATE INJ 50 MG/ML AMP ONE (09:06)
[2017-03-25] MEDS ORDERED: NEOSTIGMINE METHYLSULFATE 5 MG/5 ML SYR ONE (09:06)
[2017-03-25] MEDS ORDERED: EpHEDrine SULFATE 50MG/5ML SYR ONE (09:06)
[2017-03-25] MEDS ORDERED: ROCURONIUM BROMIDE 10 MG/ML 5 ML VIAL IV ONE (09:06)
[2017-03-25] MEDS ORDERED: PHENYLEPHRINE HCL INJ 10 MG/ML VIAL ONE (10:47)
--- NOTE | 2017-03-25 11:00 | Progress Note ---
Progress Note Date of Service Mar 25, 2017. Progress Note Pt consented for arterial line placement. Right wrist prepped and draped under sterile condition. 2ml of 1% lidocaine sq injected. US used throughout to visualize radial artery. 20g arrow inserted, seldinger technique. Catheter inserted without difficulty. Atraumatic, pt tolerated procedure well. Catheter taped and secured.
[2017-03-25] MEDS ORDERED: VISIPAQUE IV ONE (11:01)
[2017-03-25] MEDS: THROMBIN 5000 UNITS KIT ONE ×2 (11:04→12:59)
--- NOTE | 2017-03-25 12:31 | [facility] Post Operative Brief Note ---
Immediate Operative Summary Operative Date Mar 25, 2017. Pre-Operative Diagnosis History of abdominal aortic aneurysm status post percutaneous endovascular aneurysm repair with a Type III endoleak Post-Operative Diagnosis History of abdominal aortic aneurysm status post percutaneous endovascular aneurysm repair with a Type III endoleak Procedure(s) Performed Bilateral cannulation of aorta, Repair Type 3 endoleak with relining, Percutaneous Transluminal Angioplasty Right illiac artery, Embolization plug Left common illiac artery, Bilateral femoral artery exposure, Repair of Right common femoral artery with interposition graft, Cross femoral bypass right to left. Right Iliac Extension. Surgeon Dr Hopper Project Mgr Surgeon(s) Mayi Evans PA-C, Jinny Hall Fellow Estimated Blood Loss 300mL Findings Consistent with Post-Op Diagnosis Specimens None as per surgeon Drains None Anesthesia Type General Complication(s) none Disposition Accompanied Pt To Recover: no Disposition: Recovery Room / PACU
[2017-03-25] MEDS ORDERED: ALBUTEROL 0.083% NEBU SOLN 3 ML VIAL INH PRN (12:45)
[2017-03-25] MEDS ORDERED: ALBUTEROL HFA 8 GM INHALER INH PRN (12:45)
[2017-03-25] MEDS ORDERED: ENOXAPARIN 30 MG/0.3 ML SYR SQ SCH (12:45)
[2017-03-25] MEDS ORDERED: CALCIUM CARBONATE 500 MG CHEWABLE PO PRN (12:45)
[2017-03-25] MEDS ORDERED: HYDROmorphone INJ 0.5 MG/0.5 ML SYR IV PRN (12:45)
[2017-03-25 14:22] LABS: BASO % 0.5 %; BASO ABS # 0.03 K/uL (0-0.2); EOS ABS # 0.19 K/uL (0-0.5); HEMATOCRIT 30.5 % (37-47); HEMOGLOBIN 9.9 g/dL (12.0-16.0); IG# 0.06 K/uL (0.00-0.02); LYMPH % 8.6 %; LYMPH ABS # 0.55 K/uL (1.2-3.4); MEAN CELL VOLUME 79.8 fL (80-100); MEAN CORPUSCULAR HEMOGLOBIN 25.9 pg (25-34); MEAN PLATELET VOLUME 8.2 fL (7.4-10.4); MONO % 5.1 %; MONO ABS # 0.33 K/uL (0.11-0.59); NEUT % 81.9 %; NEUT ABS # 5.26 K/uL (1.4-6.5); NUCLEATED RED BLOOD CELL ABS 0.02 K/uL (0-0); PLATELET COUNT 129 K/uL (130-400); RED CELL DISTRIBUTION WIDTH CV 15.9 % (11.5-14.5); RED CELL DISTRIBUTION WIDTH SD 46.5 fL (36.4-46.3); WHITE BLOOD COUNT 6.42 K/uL (4.8-10.8)
[2017-03-25 14:27] LABS: MEAN CORPUSCULAR HGB CONC 32.5 g/dl (32-36)
--- NOTE | 2017-03-25 14:31 | Anesthesiology Progress Note ---
Anesthesia Post Op Note Date & Time Mar 25, 2017 at 14:30 Vital Signs Pain Intensity: 0 Vital Signs Past 12 Hours Date Time Temp Pulse Resp B/P (MAP) Pulse Ox O2 Delivery O2 Flow Rate FiO2 03/25/17 14:15 37.4 69 18 116/60 94 Oxymask 10 03/25/17 14:05 72 18 108/58 94 Oxymask 10 03/25/17 13:55 37.6 94 18 128/65 97 Oxymask 10 03/25/17 05:44 36.6 65 20 171/96 94 Notes Mental Status: alert / awake / arousable, participated in evaluation Pt Amnestic to Procedure: Yes Nausea / Vomiting: adequately controlled Pain: adequately controlled Airway Patency, RR, SpO2: stable & adequate BP & HR: stable & adequate Hydration State: stable & adequate Anesthetic Complications: no major complications apparent Doing well, resting comfortably, VSS.
--- NOTE | 2017-03-25 15:47 | DIAGNOSTIC IMAGING REPORT ---
DATE OF PROCEDURE: 03/25/2017 PREOPERATIVE DIAGNOSIS: History of abdominal aortic aneurysm status post percutaneous endovascular aortic aneurysm repair with type 3 endoleak. POSTOPERATIVE DIAGNOSIS: History of abdominal aortic aneurysm status post percutaneous endovascular abdominal aortic aneurysm repair with type 3 endoleak. PROCEDURE: 1. Bilateral open femoral exposure. 2. Catheter placement in aorta from bilateral groins. 3. Repair of type 3 endoleak with relining. 4. Deployment of aortouniiliac stent graft 36 mm right side ipsilateral. 5. Placement of distal right common iliac extension with 8 x 49 mm VBX balloon expandable covered stent inflated to 16 mm diameter. 6. Percutaneous transluminal angioplasty of right external iliac artery with 10 x 4 balloon. 7. Placement of additional proximal extension valiant 42 x 42 x 100, right side ipsilateral. 8. Placement of Amplatzer plug in left iliac limb of existing graft, 18 mm. 9. Repair of right common femoral artery with interposition 8 mm PTFE bypass. 10. Right to left femoral to femoral bypass with 8 x 40 mm ringed PTFE with left common femoral endarterectomy SURGEON: Dr. Jay oHpper. HEAD STILL OPERATOR: Dr. Chana Hall; Mayi Evans PA-C. ESTIMATED BLOOD LOSS: 300 mL. SPECIMENS: None. DRAINS: None. ANESTHESIA: General anesthesia. COMPLICATIONS: None. INDICATIONS: Mrs. Shanti Dillon is an 82-year-old woman who was previously followed by Dr. Gee in [facility]. She underwent previous endovascular aneurysm repair with an Endologix graft in 2013. She was lost to follow up and presented to the vascular surgery clinic for evaluation. She underwent a CTA that showed a likely type 3 endoleak with increase in her aneurysm sac size. For this reason, she was recommended to undergo repair of her type 3 endoleak with relining of a previously placed aortic graft, embolization of the left iliac, and right to left femoral-femoral bypass. The risks, benefits and alternatives were discussed with the patient and she consented to the procedure. DESCRIPTION OF PROCEDURE: The patient was taken to the operating room and placed in supine position. General endotracheal anesthesia was induced by our anesthesia colleagues. The abdomen and bilateral groins were prepped and draped in the usual sterile fashion. Bilateral longitudinal groin incisions were made overlying the common femoral arteries. Subcutaneous tissues were divided with electrocautery. The femoral sheath was identified and incised. Common femoral arteries were identified bilaterally. These were dissected circumferentially to control the common femoral, profunda, and SFA bilaterally. The patient was heparinized with 7000 units of intravenous heparin. The left common femoral was accessed with an 18-gauge access needle and a 0.035 Glidewire was easily passed up the left side into the existing graft. This was followed with a pigtail catheter. The right common femoral was accessed with an 18-gauge access needle. On the right side due to the angulation of the existing graft, 0.035 Glidewire was passed up but had difficulty entering the graft. A Traxope guide catheter was used to cannulate the right side. The wire was passed up beyond the graft into the mid abdominal aorta. To confirm that we were not in between one of the interstices of the Endologix graft, a 6 x 60 balloon was placed up the right side and inflated. This passed easily through the graft and confirmed that we were in the lumen of the graft and not between the interstices. The 0.035 Glidewire was exchanged for a Kenny wire on the right side. The right femoral arteriotomy was then dilated with a 12, 16, and 18 mm Faroese dilators. A [place] DrySeal sheath was then passed up the right side. This was followed by a 36 mm aortouniiliac device. An aortogram was obtained and the bifurcation of previously the placed graft was identified. The aortouniiliac device was then deployed within the existing Endologix device. This graft ended just near the previous iliac limb. For this reason, we proceeded to extend the right common iliac limb. A VBX stent was chosen and an 8 x 59 mm VBX was advanced up the right side and positioned just above the right iliac bifurcation. This was inflated to 16 mmHg to increase the diameter to 16 mm from 8. A 14 mm balloon was then advanced over the wire into the VBX stent and inflated easily. Balloon was then removed and the 42 x 42 x 100 Valiant thoracic graft was then placed up the right side. This had significant difficulty in passing through the external iliac despite several attempts. The device was removed and the external iliac was then angioplastied with a 10 x 40 mm balloon across its entirety. Following balloon angioplasty of the right external iliac, the valiant device pass easily. A 42 x 42 x 100 mm valiant thoracic device was advanced into the infrarenal aorta and deployed within the existing aortoiliac device. A coda balloon was then passed up the right and inflated at all graft to graft and graft to artery junctions. A completion aortogram was obtained and showed a patent repair without any endoleaks. An 0.35 guide wire was then passed up the Left side. An Ansell sheath was then passed over the wire into the left iliac limb of the Endologixs graft. An 18 mm amplatzer plug was then deployed in the left iliac limb extending into the left common iliac. An angiogram was obtained and showed the left limb to be appropriately occluded. We then turned our attention to the right groin. It appeared that the 25 Fr thoracic device had significantly damaged the right common femoral and we felt that it would be best to complete a right femoral interposition bypass. The common femoral, profunda, and SFA were clamped and the dry seal sheath removed. The artery wall was debrided and the common femoral transacted. An 8x40 mm propatent PTFE graft was then brought onto the field. It was anastomosed to the proximal common femoral artery in an end-to-end fashion with running gortex CV5 suture. The graft was cut to length and sewn to the distal common femoral just above the femoral bifurcation again with running CV5 suture. All arteries were back bled and the graft was flushed and de-aired prior to completion of the anastomosis. Both anastomoses appeared hemostatic. A suprapubic tunnel was then created from the left groin to the right groin using an aortic clamp. An 8x40 mm propatent ringed PTFE graft was brought onto the field and passed though the suprapubic tunnel. The left common femoral, profunda, and SFA were clamped. An arteriotomy was made in the left common femoral with and 11 blade scalpel and extended into the SFA with Butler scissors. The left common femoral was endarterectomized with removal of a bulky plaque. The graft was then cut to length and beveled. We completed our left femoral anastomosis with gortex CV5 suture in a running fashion. All arteries were backbled and the graft was flushed prior to completion of the anastomosis. We then turned out attention to the right groin. Clamps were placed on the PTFE interposition graft proximally and around the profunda and SFA. The graft was incised with and 11 blade scalpel and the graftotomy was extended with Butler scissors. The cross femoral graft was then cut to length and beveled. It was anastomosed to the right femoral interposition graft in an end to side fashion with running CV5 gortex suture. Prior to completion of the anastomosis all vessels were back bled. The graft was flushed and de-aired. A palpable pulse was appreciated proximal and distal to all anastomoses. The groins were irrigated and hemostasis was achieved surrounding all anastomoses. There was a small amount of tunnel bleeding but this did not appear to be significant. Each groin was closed with three layers of Vicryl suture. The skin was reaproximated with skin susan. Sterile dressings were applied. The right peroneal and left AT Doppler signals were present at the close of the case. Patient was awakened from Anesthesia and transferred to the ICU in stable condition. Dr. Jay Hopper was present for the entire procedure. [facility] CENTER[facility]ido
[2017-03-25] MEDS: CLINDAMYCIN IV 600 MG in DEXTROSE 5% 50ML 46 ML IV SCH ×2 (15:50→23:37)
[2017-03-25] MEDS: LACTATED RINGER'S 1000ML 1,000 ML IV SCH ×2 (15:51→22:36)
[2017-03-25] MEDS ORDERED: SODIUM CHLORIDE 0.9% 500ML 500 ML IV ONE (16:00)
[2017-03-25] MEDS ORDERED: PROMETHAZINE HCL INJ 25 MG in SODIUM CHLORIDE 0.9% 50ML 50 ML IV PRN (16:00)
--- NOTE | 2017-03-25 19:34 | Critical Care Consultation ---
Critical Care Consultation Date of Consultation: Mar 25, 2017. Attending Physician: Jay Hopper M.D. Reason for Consultation: Post-Op Observation History of Present Illness Shanti Dillon is a 82yo female who presented to [facility] today for planned repair of Type [address] Hopper. Pt is not very mobile at baseline secondary to both claudication, COPD and shortness of breath, and neuropathy bilaterally. She states she can not walk more than a block. Most recently the pt has complained of right calf michael both with movement and with pressure. In the middle of the night, she reports the right calf cramps op. CTA confirmed endoleak along the posterior distal aortic component that measured 4 x 1.1cm; likely at the junction of the aortic and iliac limbs. Pt does have a hx/o a 2013 endovascular repair at [facility] by Dr. Gee; which relieve symptoms at that time. Pt was cleared medically for today's operation. Cardiac pharmacologic stress test was negative for ST-T wave changes with a normal EF without abnormal wall motion or thickening. Preprocedure ECHO demonstrated similiar findings as well as mild mitral and tricuspid insufficiency, sclerotic changes of both aortic and mitral valve leaflets as weel a mitral annular calcification. Borderline left ventricular hypertrophy was noted. Pt underwent Bilateral cannulation of aorta, Repair Type 3 endoleak with relining, Percutaneous Transluminal Angioplasty Right illiac artery, Embolization plug, Left common illiac artery, Bilateral femoral artery exposure , Repair of Right common femoral artery with interposition graft, Cross femoral bypass right to left and a Right Iliac Extension. EBL of 300mL. Operation last just over 5hrs and pt also underwent placement of arterial catheterization without issue. On my examination pt is resting in bed with home CPAP in place. She denies fever, dizziness, headache, muscle weakness, change in vision, sore throat, chest pain, palpitations, awareness of tachyarrhythmias, leg swelling, dyspnea, cough, nausea, vomiting, bloody stools, diarrhea, constipation, abdominal pain, other changes in urine or bowel habits. Pt is chronically dyspneic on exertion, bilateral neuropathy, and states a hx of distant A. Fib. Past Medical/Surgical History Medical Problems: Type I endoleak Type III endoleak Hypertension Atrial Fibrillation COPD Sleep Apnea Bilateral Neuropathy PAD Hypothyroidism Osteoarthritis Herniated Cervical Disc Obesity Renal Calculi Hernia restless leg Syndrome Past Surgical Repair Herniorrhaphy Cholecystectomy L Wrist ORIF Ligamental repair of R. Knee Abdominal Aortic Aneurysm Repair Cataract Extractions Dilatation and Curettage Social History Smoking Status: Former Smoker (Quit 1999, after 35-45yrs) Alcohol Use: occasionally (glass of wine) Drug Use: none Occupation Status: retired Allergies Coded Allergies: BEE STING (Verified Allergy, Severe, ANAPHYLAXIS, 03/25/17) Dairy (Verified Allergy, Unknown, DIARRHEA, 03/25/17) Meperidine (Unverified Allergy, Unknown, Confusion, 03/25/17) Morphine (Unverified Allergy, Unknown, confusion, 03/25/17) Penicillins (Unverified Allergy, Unknown, swelling of face and month, 03/25) Unclassified Drugs (Verified Allergy, Unknown, MULTIPLE ENVIRONMENTAL ALLERGIES - SNEEZING/WATERY NOSE/EYE, 03/25/17) Home Medications Scheduled Amlodipine (Norvasc), 5 MG PO QAM Artificial Tear Solution (Genteal Tears Liquid Drop 0.1-0.2-0.3 %), 1 DROP OPB HS Aspirin (Aspirin Ec), 81 MG PO QAM Cholecalciferol (Vitamin D3), 1 TAB PO QAM Cyanocobalamin (Vitamin B12), QAM Enoxaparin (Lovenox), 30 MG SQ Q12H Epinephrine (Epipen), 0.3 MG IM UD Fish Oil ([place]-3), 1 CAP PO QAM Gabapentin (Neurontin), 300 MG PO HS Magnesium Gluconate (Magnesium Gluconate), QAM Montelukast Sodium (Singulair), 1 TAB PO HS Pramipexole (Mirapex), 0.125 MG PO BID Vitamin E (E-400), 1 CAP QDL Warfarin Sod (Jantoven), 5 MG PO 2XWK Warfarin Sod (Jantoven), 2.5 MG PO 5XWK [potassium citrate], 10 MEQ BID [thyroid desiccated], 65 MG QAM Scheduled PRN Albuterol Sulf (Proventil 0.083% 2.5MG/3ML), 2.5 MG INH Q6 PRN for Wheezing Albuterol Sulfate (Proventil Hfa), 2 PUFF QID PRN for SOB/Wheezing Calcium Carbonate (Tums), 1 TAB UD PRN for HEARTBURN Ketotifen Fumarate (Ophth) (Zaditor 0.025% Oph), 1 DROP OP Q12H PRN for DRY EYES Meclizine HCl (Meclizine HCl), 2 TAB PO TID PRN for Itching Current Inpatient Medications Current Inpatient Medications Medications (Trade) Dose Ordered Sig/Angel Route Start Time Stop Time Status Last Admin Dose Admin Lactated Ringer's 1,000 ml @ 15 mls/hr Q24H IV 03/25/17 06:00 03/26/17 05:59 03/25/17 06:19 15 MLS/HR Ondansetron HCl (Zofran Inj) 4 mg ONE PRN IV 03/25/17 06:15 Oxycodone/ Acetaminophen (Percocet 5-325mg Tab) `1-2 TABS FOR MODER... Q4H PRN PO 03/25/17 12:45 04/08/17 12:44 Acetaminophen (Tylenol Tab) 650 mg Q4H PRN PO 03/25/17 12:45 04/24/17 12:44 Ondansetron HCl (Zofran Inj) 4 mg Q6H PRN IV 03/25/17 12:45 04/24/17 12:44 03/25/17 15:01 4 MG Pantoprazole Sodium 40 mg/ Syringe 10 ml @ 5 mls/min DAILY@11 IV 03/26/17 11:00 03/29/17 12:00 Clindamycin Phosphate 600 mg/ Dextrose 50 ml @ 100 mls/hr Q8H IV 03/25/17 16:00 03/26/17 00:29 03/25/17 15:50 100 MLS/HR Enoxaparin Sodium (Lovenox Inj) 30 mg Q12H SQ 03/26/17 08:00 04/25/17 07:59 Lactated Ringer's 1,000 ml @ 125 mls/hr Q8H IV 03/25/17 15:00 04/24/17 14:59 03/25/17 15:51 125 MLS/HR Albuterol Sulfate (Ventolin 0.083% 2.5MG/3ML Neb) 2.5 mg Q6 PRN INH 03/25/17 12:45 04/24/17 12:44 Albuterol (Ventolin Hfa Inhaler) 2 puffs QID PRN INH 2/13/18 12:45 04/24/17 12:44 Amlodipine Besylate (Norvasc Tab) 5 mg QAM PO 03/26/17 09:00 04/25/17 08:59 Aspirin (Ecotrin Tab) 81 mg QAM PO 03/26/17 09:00 04/25/17 08:59 Calcium Carbonate (Tums Chew Tab) 500 mg DAILY PRN PO 03/25/17 12:45 04/24/17 12:44 Cholecalciferol (Vitamin D Tab) 1,000 inter.unit QAM PO 03/26/17 09:00 04/25/17 08:59 Gabapentin (Neurontin Cap) 300 mg HS PO 03/25/17 21:00 04/24/17 20:59 Montelukast Sodium (Singulair Tab) 10 mg HS PO 03/25/17 21:00 04/24/17 20:59 Pramipexole Dihydrochloride (miraPEX TAB) 0.125 mg BID PO 03/25/17 21:00 04/24/17 20:59 [id number] Acetate (Vitamin E Cap) 400 interunit QDL PO 03/26/17 11:00 04/25/17 10:59 Warfarin Sodium (Coumadin Tab) 2.5 mg SuTuThFrSa@1600 PO 03/25/17 16:00 04/24/17 15:59 Warfarin Sodium (Coumadin Tab) 5 mg MoWe@1600 PO 03/26/17 16:00 04/25/17 15:59 Artificial Tears (Artificial Tears) 1 drops HS OPB 03/25/17 21:00 04/24/17 20:59 Miscellaneous Information (Order Awaiting Action) 1 ea QS N/A 03/25/17 16:00 04/24/17 15:59 Meclizine HCl (Antivert Tab) 25 mg TID PRN PO 03/25/17 12:45 04/24/17 12:44 Potassium Citrate (Urocit-K Tab) 10 meq BID PO 03/25/17 21:00 04/24/17 20:59 Thyroid ([place] Thyroid Tab) 60 mg QAM PO 03/26/17 09:00 04/25/17 08:59 Hydromorphone HCl (Dilaudid Inj) 0.5 mg Q2HWA PRN IV 03/25/17 12:45 04/08/17 12:44 Promethazine HCl 25 mg/Sodium Chloride 51 ml @ 204 mls/hr Q6H PRN IV 03/25/17 16:00 04/24/17 15:59 03/25/17 16:38 204 MLS/HR Review of Systems 12 systems reviewed and negative other than previously mentioned in the HPI. Physical Exam Date Time Temp Pulse Resp B/P (MAP) Pulse Ox O2 Delivery O2 Flow Rate FiO2 03/25/17 19:00 67 105/44 (64) 98 03/25/17 18:00 70 94/46 (62) 98 03/25/17 16:59 96 Nasal Cannula 4.0 03/25/17 16:30 70 103/50 (67) 98 93/55 (68) 03/25/17 16:05 72 94/53 (67) 96 03/25/17 16:00 98 Nasal Cannula 6.0 Humidified Oxygen 03/25/17 15:32 74 93/54 (67) 96 03/25/17 15:17 105/55 (72) 03/25/17 15:17 36.7 72 18 105/55 (72) 97 Nasal Cannula 6.0 Humidified Oxygen 03/25/17 14:25 37.4 80 18 101/62 94 Oxymask 10 03/25/17 14:15 37.4 69 18 116/60 94 Oxymask 10 03/25/17 14:05 72 18 108/58 94 Oxymask 10 03/25/17 13:55 37.6 94 18 128/65 97 Oxymask 10 03/25/17 05:44 36.6 65 20 171/96 94 Vital Signs - as noted Laboratory Data - as noted Physical Exam: General - NAD, Sleeping with home CPAP in place Eyes - PERRL, EOMI No icterus, gaze conjugate ENT - Mucosa moist, no lesions or candidiasis Neck - Supple, trachea midline, no masses or lymphadenopathy, no JVD or bruits Lungs - No paradoxical chest wall movement, clear to auscultation bilaterally, no wheezes, rales, or rhonchi Heart - Reg rate and rhythm, No murmur, rubs, clicks, or gallops appreciated Abdomen -BS present, no bruits noted, tympanic to percussion, soft, nontender, nondistended, no organomegaly, obese belly, multiple bruises from sq injections Extremities - No edema, pedal pulses intact, bilateral groin dressing clean, dry and intact Neuro - A&OX3 Strength extremities equal and appropriate bilaterally Reflexes: Normal and equal CN:PERRL, EOMI, no facial asymmetry, uvula/tongue midline Laboratory Results Last 24 Hours Test 03/25/17 05:39 03/25/17 13:01 03/25/17 14:13 03/25/17 16:34 Prothrombin Time 13.5 SECONDS Prothromb Time International Ratio 1.3 Activated Partial Thromboplast Time 35.5 SECONDS Partial Thromboplastin Ratio 1.4 Kaolin Activated Coagulation Time 202 SECONDS White Blood Count 6.42 K/uL Red Blood Count 3.82 M/uL Hemoglobin 9.9 g/dL Hematocrit 30.5 % Mean Corpuscular Volume 79.8 fL Mean Corpuscular Hemoglobin 25.9 pg Mean Corpuscular Hemoglobin Concent 32.5 g/dl Platelet Count 129 K/uL Mean Platelet Volume 8.2 fL Neutrophils (%) (Auto) 81.9 % Lymphocytes (%) (Auto) 8.6 % Monocytes (%) (Auto) 5.1 % Eosinophils (%) (Auto) 3.0 % Basophils (%) (Auto) 0.5 % Neutrophils # (Auto) 5.26 K/uL Lymphocytes # (Auto) 0.55 K/uL Monocytes # (Auto) 0.33 K/uL Eosinophils # (Auto) 0.19 K/uL Basophils # (Auto) 0.03 K/uL RDW Standard Deviation 46.5 fL RDW Coefficient of Variation 15.9 % Immature Granulocyte % (Auto) 0.9 % Immature Granulocyte # (Auto) 0.06 K/uL Nucleated RBC Absolute Count (auto) 0.02 K/uL Nucleated Red Blood Cells % 0.2 % Bedside Glucose 155 mg/dl Diagnostic Results PRIOR CHEST 2 VIEWS ROUTINE CLINICAL HISTORY: PAT preoperative evaluation COMPARISON STUDY: No previous studies for comparison. FINDINGS: Mild cardia megaly. Moderate tortuosity thoracic aorta. Diaphragms smooth. Lungs are clear. Diaphragms are smooth. IMPRESSION: Mild cardia megaly. Otherwise negative study. The above report was generated using voice recognition software. It may contain grammatical, syntax or spelling errors. Electronically signed by: Cm Matthews M.D. 02/27/2017 3:17 PM Dictated Date/Time: 02/27/2017 3:16 PM Assessment & Plan (1) Hypertension (2) Neuropathy (3) Hypothyroid (4) COPD (chronic obstructive pulmonary disease) (5) A-fib (6) type III endoleak PLAN: Neuro: * Continue home Neurontin 300Mg PO hs * Alert provider if Pain Scale changes, pt denies pain currently * Dilaudid, Percocet, and Tylenol on EMR Resp: * Supplemental O2 as needed * CPAP HS * Hx of COPD * Continue home respiratory regimen including: Albuterol and Singulair * Adequate Respirations and Saturation on Monitor, Pt denies SOB CV: * HTN, hx of A. Fib * Home medication continued * Including: Norvasc, ASA, Lovenox, Warfarin * Monitor on telemetry * Arterial Line in place: SBP currently 150's * EF WNL per pre-operative ECHO Fluids/Renal: * Lactated Ringers @ 125mL/HR * Cr: at baseline currently, trend daily * Leija in place to gravity, Strict I&O's ID: * Operative Prophylaxis Abx: Clindamycin * WBCs WNL, Afebrile * Trend Fever Curve GI/Nutrition: * Nauseous previously tx'd with Zofran and Phenergan * Pt states resolved * If returns: Repeat EKG prior to PRN administration of antiemetics * Diet AHA ordered * GI Prophylaxis not indicated Heme: * Anemia Noted this admission. May be dilution. EBL of 300mL * No signs of hemodynamic instability * Monitor for signs of bleeding * Repeat CBC in AM * DVT Prophylaxis: Held for surgery restarting in AM Endocrine: * Accu-Checks per protocol, started insulin infusion for 2 blood sugars greater than 180 * No hx of DM * Continue Home Thyroid Medication CCT: 0 Minutes; Level 3 inpatient Consult. This time is exclusive of all separately billable procedures. Thank you for involving us in the care of this patient. Please refer to Dr. Ronny Martines's addendum for further recommendations. I have personally evaluated and examined this patient. I agree with assessment and plan of Vinicio Wilson PA-C. During my evaluation the patient was mildly nauseated, she was no longer throwing up. She appears to be hemodynamically stable, she is able to move her bilateral lower extremities and feels reasonably well.
[2017-03-25] MEDS: ARTIFICIAL TEARS OP SOLN OPB SCH (19:51)
[2017-03-25] MEDS: PRAMIPEXOLE DIHYDROCHLORIDE 0.25MG TAB PO SCH (19:51)
[2017-03-25] MEDS: MONTELUKAST SOD 10 MG TAB PO SCH (19:52)
[2017-03-25] MEDS: GABAPENTIN 300 MG CAP PO SCH (19:52)
[2017-03-25] MEDS: POTASSIUM CITRATE 10 MEQ TAB PO SCH (19:53)
[2017-03-25] MEDS: WARFARIN SOD 2.5 MG TAB PO SCH (20:24)
[2017-03-25 21:33] LABS: HEMOGLOBIN 9.6 g/dL (12.0-16.0)
[2017-03-26] VITALS (41 sets, daily range): BP systolic 57–130; BP diastolic 36–81; PULSE 75–103; TEMP 36.9–37.1; O2SAT 89–96
[2017-03-26 05:48] LABS: BASO % 0.1 %; BASO ABS # 0.01 K/uL (0-0.2); EOS % 0.4 %; EOS ABS # 0.03 K/uL (0-0.5); HEMOGLOBIN 9.1 g/dL (12.0-16.0); IG# 0.02 K/uL (0.00-0.02); LYMPH % 5.8 %; MEAN CELL VOLUME 82.2 fL (80-100); MEAN CORPUSCULAR HEMOGLOBIN 25.8 pg (25-34); MEAN CORPUSCULAR HGB CONC 31.4 g/dl (32-36); MONO % 5.7 %; MONO ABS # 0.39 K/uL (0.11-0.59); NEUT % 87.7 %; NEUT ABS # 6.01 K/uL (1.4-6.5); PLATELET COUNT 126 K/uL (130-400); RED CELL DISTRIBUTION WIDTH CV 16.3 % (11.5-14.5); RED CELL DISTRIBUTION WIDTH SD 48.6 fL (36.4-46.3); WHITE BLOOD COUNT 6.86 K/uL (4.8-10.8)
[2017-03-26 06:16] LABS: CALCIUM 7.7 mg/dl (8.5-10.1); CREATININE 1.43 mg/dl (0.60-1.20); POTASSIUM 4.8 mmol/L (3.5-5.1)
[2017-03-26 06:17] LABS: PHOSPHORUS 3.6 mg/dl (2.5-4.9)
[2017-03-26] MEDS: ACETAMINOPHEN 325 MG TAB PO PRN (07:07)
[2017-03-26] MEDS: ARMOUR THYROID 30 MG TAB PO SCH (07:25)
[2017-03-26] MEDS: CHOLECALCIFEROL 1000 INTER.UNIT TAB PO SCH (07:25)
[2017-03-26] MEDS: POTASSIUM CITRATE 10 MEQ TAB PO SCH ×2 (07:25→19:36)
[2017-03-26] MEDS: ASPIRIN 81 MG ECTAB PO SCH (07:26)
[2017-03-26] MEDS: PRAMIPEXOLE DIHYDROCHLORIDE 0.25MG TAB PO SCH ×2 (07:26→19:34)
[2017-03-26] MEDS: AMLODIPINE BESYLATE 5 MG TAB PO SCH (07:27)
[2017-03-26] MEDS: ENOXAPARIN 30 MG/0.3 ML SYR SQ SCH ×2 (07:28→19:34)
--- NOTE | 2017-03-26 08:00 | Clinical Documentation Query ---
CLINICAL DOCUMENTATION QUERY QUERY 1 OF 2 An 82 yo female is admitted for s/p repair of Type 3 endoleak. Initial preoperative hgb 13.1 on 02/27/2017 and trended down to 9.1 on 03/26/2017. In your clinical opinion is this patient being managed for: ( ) Acute blood-loss anemia ( ) Not Agree ( ) Other explanation of clinical findings (Please Explain) ( ) Unable to determine (Please Define) ( ) Need to Discuss The medical record reflects the following clinical findings, treatment, and risk factors. Clinical Indicators: Hgb 13.1 trending down to 9.1 Treatment: Type/cross PRBCs, serial CBCs, IV hydration Risk Factors: S/P surgical event QUERY 2 OF 2 The patient's GFR range from January to March is 34.3 to 40.6. In your clinical opinion is this patient being managed for: ( ) Chronic kidney disease, stage 3 ( ) Not Agree ( ) Other explanation of clinical findings (Please Explain) ( ) Unable to determine (Please Define) ( ) Need to Discuss The medical record reflects the following clinical findings, treatment, and risk factors. Clinical Indicators: As above Treatment: Serial PRPs, IV hydration Risk Factors: Age, HTN, Afib Please clarify and document your clinical opinion in the progress notes and discharge summary. Terms such as "probable", "suspected", "likely", "questionable", "possible", or "still to be ruled out" are acceptable. IF IN AGREEMENT, YOU MUST DOCUMENT ABOVE DIAGNOSTIC STATEMENT IN DAILY PROGRESS NOTES AND DISCHARGE SUMMARY. This document is not part of the patient's record. Thank You, Christy Huertas RN [phone]
--- NOTE | 2017-03-26 08:56 | Anesthesiology Progress Note ---
Anesthesia Post Op Note Date & Time Mar 26, 2017 at 08:56 Vital Signs Pain Intensity: 6.0 Vital Signs Past 12 Hours Date Time Temp Pulse Resp B/P (MAP) Pulse Ox O2 Delivery O2 Flow Rate FiO2 03/26/17 06:01 83 113/63 (80) 94 03/26/17 06:00 83 20 115/49 (71) 93 03/26/17 05:00 80 (69) 90 117/48 03/26/17 05:00 80 117/48 (71) 90 03/26/17 04:02 81 128/64 (76) 94 121/53 03/26/17 04:00 37.1 81 18 126/54 (78) 94 03/26/17 04:00 CPAP 03/26/17 03:00 84 120/50 (73) 91 03/26/17 02:01 76 116/80 (68) 93 112/47 03/26/17 02:01 76 112/47 (68) 93 03/26/17 02:00 76 20 108/44 (65) 92 03/26/17 01:00 81 98/44 (62) 92 03/26/17 00:01 78 120/74 (75) 92 123/51 03/26/17 00:01 78 123/51 (75) 92 03/26/17 00:00 36.9 75 16 117/49 (71) 92 03/25/17 23:59 CPAP 03/25/17 23:00 76 117/51 (73) 92 Notes Mental Status: alert / awake / arousable, participated in evaluation Pt Amnestic to Procedure: Yes Nausea / Vomiting: adequately controlled Pain: adequately controlled Airway Patency, RR, SpO2: stable & adequate BP & HR: stable & adequate Hydration State: stable & adequate Anesthetic Complications: no major complications apparent
[2017-03-26] MEDS ORDERED: PANTOprazole INJ 40 MG in SYRINGE 0 ML IV SCH (11:00)
--- NOTE | 2017-03-26 11:22 | Progress Note ---
Progress Note Date of Service: Mar 26, 2017. Subjective No complaints but did get hypotension when in chair times two today Objective Vital Signs Vital Signs Past 12 Hours Date Time Temp Pulse Resp B/P (MAP) Pulse Ox O2 Delivery O2 Flow Rate FiO2 03/26/17 11:12 84/52 (63) 03/26/17 11:10 98/69 (79) 75/44 (54) 57/37 (44) 03/26/17 09:30 83 89 03/26/17 09:00 87 91 03/26/17 08:37 86 96/60 (66) 03/26/17 08:30 81 93 03/26/17 08:25 93 106/53 (72) 90 03/26/17 08:20 92 74/47 (50) 93 03/26/17 08:19 90 71/51 (57) 93 03/26/17 08:15 91 90 03/26/17 08:02 94 106/81 (51) 93 75/37 03/26/17 08:00 96 (48) 91 75/36 03/26/17 08:00 94 Nasal Cannula 2.0 03/26/17 07:37 92 121/62 (56) 92 86/41 03/26/17 07:00 91 (53) 92 81/40 03/26/17 06:01 83 113/63 (80) 94 03/26/17 06:00 83 20 115/49 (71) 93 03/26/17 05:00 80 (69) 90 117/48 03/26/17 05:00 80 117/48 (71) 90 03/26/17 04:02 81 128/64 (76) 94 121/53 03/26/17 04:00 37.1 81 18 126/54 (78) 94 03/26/17 04:00 CPAP 03/26/17 03:00 84 120/50 (73) 91 03/26/17 02:01 76 116/80 (68) 93 112/47 03/26/17 02:01 76 112/47 (68) 93 03/26/17 02:00 76 20 108/44 (65) 92 03/26/17 01:00 81 98/44 (62) 92 03/26/17 00:01 78 120/74 (75) 92 123/51 2/14/18 00:01 78 123/51 (75) 92 03/26/17 00:00 36.9 75 16 117/49 (71) 92 03/25/17 23:59 CPAP Exam Awake alert BP 84/52 in bed at this time Groin incisions without problems Dopplers heard in both feet. Hgb 9.1 Laboratory and Microbiology Results Past 24 Hours Test 03/25/17 13:01 03/25/17 14:13 03/25/17 16:34 03/25/17 20:21 Range/Units Kaolin Activated Coagulation Time 202 94-140 SECONDS White Blood Count 6.42 4.8-10.8 K/uL Red Blood Count 3.82 4.2-5.4 M/uL Hemoglobin 9.9 12.0-16.0 g/dL Hematocrit 30.5 37-47 % Mean Corpuscular Volume 79.8 80-100 fL Mean Corpuscular Hemoglobin 25.9 25-34 pg Mean Corpuscular Hemoglobin Concent 32.5 32-36 g/dl Platelet Count 129 130-400 K/uL Mean Platelet Volume 8.2 7.4-10.4 fL Neutrophils (%) (Auto) 81.9 % Lymphocytes (%) (Auto) 8.6 % Monocytes (%) (Auto) 5.1 % Eosinophils (%) (Auto) 3.0 % Basophils (%) (Auto) 0.5 % Neutrophils # (Auto) 5.26 1.4-6.5 K/uL Lymphocytes # (Auto) 0.55 1.2-3.4 K/uL Monocytes # (Auto) 0.33 0.11-0.59 K/uL Eosinophils # (Auto) 0.19 0-0.5 K/uL Basophils # (Auto) 0.03 0-0.2 K/uL RDW Standard Deviation 46.5 36.4-46.3 fL RDW Coefficient of Variation 15.9 11.5-14.5 % Immature Granulocyte % (Auto) 0.9 % Immature Granulocyte # (Auto) 0.06 0.00-0.02 K/uL Nucleated RBC Absolute Count (auto) 0.02 0-0 K/uL Nucleated Red Blood Cells % 0.2 % Bedside Glucose 155 115 70-90 mg/dl Test 03/25/17 21:20 03/26/17 04:12 2/14/18 05:22 03/26/17 07:36 Range/Units Hemoglobin 9.6 9.1 12.0-16.0 g/dL Hematocrit 30.0 29.0 37-47 % Bedside Glucose 131 152 70-90 mg/dl White Blood Count 6.86 4.8-10.8 K/uL Red Blood Count 3.53 4.2-5.4 M/uL Mean Corpuscular Volume 82.2 80-100 fL Mean Corpuscular Hemoglobin 25.8 25-34 pg Mean Corpuscular Hemoglobin Concent 31.4 32-36 g/dl Platelet Count 126 130-400 K/uL Mean Platelet Volume 9.0 7.4-10.4 fL Neutrophils (%) (Auto) 87.7 % Lymphocytes (%) (Auto) 5.8 % Monocytes (%) (Auto) 5.7 % Eosinophils (%) (Auto) 0.4 % Basophils (%) (Auto) 0.1 % Neutrophils # (Auto) 6.01 1.4-6.5 K/uL Lymphocytes # (Auto) 0.40 1.2-3.4 K/uL Monocytes # (Auto) 0.39 0.11-0.59 K/uL Eosinophils # (Auto) 0.03 0-0.5 K/uL Basophils # (Auto) 0.01 0-0.2 K/uL RDW Standard Deviation 48.6 36.4-46.3 fL RDW Coefficient of Variation 16.3 11.5-14.5 % Immature Granulocyte % (Auto) 0.3 % Immature Granulocyte # (Auto) 0.02 0.00-0.02 K/uL Sodium Level 137 136-145 mmol/L Potassium Level 4.8 3.5-5.1 mmol/L Chloride Level 106 98-107 mmol/L Carbon Dioxide Level 24 21-32 mmol/L Anion Gap 7.0 3-11 mmol/L Blood Urea Nitrogen 20 7-18 mg/dl Creatinine 1.43 0.60-1.20 mg/dl Est Creatinine Clear Calc Drug Dose 34.1 ml/min Estimated GFR () 39.7 Estimated GFR (Non- 34.3 BUN/Creatinine Ratio 13.9 10-20 Random Glucose 133 70-99 mg/dl Calcium Level 7.7 8.5-10.1 mg/dl Phosphorus Level 3.6 2.5-4.9 mg/dl Magnesium Level 2.2 1.8-2.4 mg/dl Microbiology Results 03/25/17 MRSA DNA Surveillance Screen - Final, Complete Specimen Negative for MRSA by DNA Probe Imp: 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
[2017-03-26] MEDS ORDERED: NURSING VERBAL MED ORDER ONE (11:30)
[2017-03-26] MEDS: TOCOPHERYL, DL-ALPHA 400 INTER.UNIT CAP PO SCH (11:40)
[2017-03-26] MEDS: LACTATED RINGER'S 1000ML 1,000 ML IV SCH ×3 (11:40→23:22)
[2017-03-26] MEDS: PANTOprazole SOD 40 MG TAB PO SCH (11:40)
[2017-03-26] MEDS: OXYCODONE/ACETAMINOPHEN 5-325 TAB PO PRN (15:57)
[2017-03-26] MEDS ORDERED: WARFARIN SOD 5 MG TAB PO SCH (16:00)
[2017-03-26 18:56] LABS: CALCIUM 7.9 mg/dl (8.5-10.1); CREATININE 1.52 mg/dl (0.60-1.20); POTASSIUM 4.3 mmol/L (3.5-5.1)
[2017-03-26] MEDS: ARTIFICIAL TEARS OP SOLN OPB SCH (19:34)
[2017-03-26] MEDS: GABAPENTIN 300 MG CAP PO SCH (19:35)
[2017-03-26] MEDS: MONTELUKAST SOD 10 MG TAB PO SCH (19:36)
[2017-03-26 20:05] LABS: HEMATOCRIT 27.9 % (37-47)
[2017-03-27] VITALS (24 sets, daily range): BP systolic 93–152; BP diastolic 45–96; PULSE 77–112; TEMP 36.8–37.3; O2SAT 84–99
[2017-03-27] MEDS ORDERED: HYDROCORTISONE IV 100 MG in SYRINGE 0 ML IV ONE (02:00)
[2017-03-27 04:41] LABS: HEMATOCRIT 29.8 % (37-47); HEMOGLOBIN 9.3 g/dL (12.0-16.0); MEAN CELL VOLUME 83.2 fL (80-100); MEAN CORPUSCULAR HGB CONC 31.2 g/dl (32-36); RED CELL DISTRIBUTION WIDTH CV 15.8 % (11.5-14.5); RED CELL DISTRIBUTION WIDTH SD 48.2 fL (36.4-46.3); WHITE BLOOD COUNT 6.84 K/uL (4.8-10.8)
[2017-03-27 05:03] LABS: CREATININE 1.31 mg/dl (0.60-1.20); POTASSIUM 4.5 mmol/L (3.5-5.1)
[2017-03-27 05:05] LABS: EOS % 0.9 %; EOS ABS # 0.06 K/uL (0-0.5); IG# 0.03 K/uL (0.00-0.02); LYMPH % 3.5 %; LYMPH ABS # 0.24 K/uL (1.2-3.4); MEAN PLATELET VOLUME 9.3 fL (7.4-10.4); MONO % 3.7 %; MONO ABS # 0.25 K/uL (0.11-0.59); NEUT % 91.5 %; NEUT ABS # 6.26 K/uL (1.4-6.5); PLATELET COUNT 92 K/uL (130-400)
[2017-03-27 05:13] LABS: PHOSPHORUS 2.7 mg/dl (2.5-4.9)
--- NOTE | 2017-03-27 05:25 | Critical Care Progress Note ---
Critical Care Progress Note Date of Service Mar 26, 2017. Late Entry ICU Day ICU Day Number: [address] Martines Subjective Pt without acute events overnight. Did become hypotensive while out of bed to chair in the AM. No acute complaints. Objective Vital Signs - as noted Laboratory Data - as noted Physical Exam: General - NAD Lungs - No paradoxical chest wall movement, clear to auscultation bilaterally, no wheezes, rales, or rhonchi Heart - sinus tachycardia, No murmur, rubs, clicks, or gallops appreciated Abdomen - normoactive BS present, no bruits noted, tympanic to percussion, soft , nontender, nondistended, no organomegaly. groin incision dressed, clean dry and intact Extremities - No edema, pedal pulses intact CN:PERRL, EOMI, no facial asymmetry, uvula/tongue midline Assessment & Plan (1) Hypertension (2) Neuropathy (3) Hypothyroid (4) COPD (chronic obstructive pulmonary disease) (5) A-fib (6) type III endoleak Neuro: * Monitor Pain Scale Resp: * Supplemental O2 as needed * CPAP HS * Hx of COPD * Continue home respiratory regimen including: Albuterol and Singulair * Adequate Respirations and Saturation on Monitor, Pt denies SOB CV: * HTN, hx of A. Fib * Orthostatic Hypotension: Check Orthostatic vitals q shift * Hemoglobin: [] Transfused one unit of PRBCs * Check Random Cortisol: if less than 20 will give 100mg of Hydrocortisone * Home medication continued * Including: Norvasc, ASA, Lovenox, Warfarin * Monitor on telemetry * Arterial Line in place Fluids/Renal: * Lactated Ringers @ 125mL/HR: Positive 6L * EF WNL; Monitor for fluid overload * Cr:trend daily * Elija in place to gravity, Strict I&O's ID: * Operative Prophylaxis Abx: Clindamycin Complete * WBCs WNL, Afebrile * Trend Fever Curve GI/Nutrition: * Resolved: Nauseous * Diet AHA ordered * GI Prophylaxis not indicated Heme: * Anemia continues, Symptomatic secondary to orthostatic hypotension * Transfuse 1 unit of blood * DVT Prophylaxis: Held for surgery restarting in AM Endocrine: * Accu-Checks per protocol, started insulin infusion for 2 blood sugars greater than 180 * No hx of DM * Continue Home Thyroid Medication CCT: 0 Minutes; Level 2 inpatient Consult. This time is exclusive of all separately billable procedures. Thank you for involving us in the care of this patient. Please refer to Dr. Ronny Martines's addendum for further recommendations. I have personally evaluated and examined this patient. I agree with assessment and plan of Vinicio Wilson PA-C. Discontinued arterial line, check random cortisol if below 20 we will give single dose of hydrocortisone, suspect the patient may be experiencing an aspect of relative adrenal insufficiency Data Medications: Current Inpatient Medications Medications (Trade) Dose Ordered Sig/Angel Route Start Time Stop Time Status Last Admin Dose Admin Ondansetron HCl (Zofran Inj) 4 mg ONE PRN IV 03/25/17 06:15 Oxycodone/ Acetaminophen (Percocet 5-325mg Tab) `1-2 TABS FOR MODER... Q4H PRN PO 03/25/17 12:45 04/08/17 12:44 03/26/17 15:57 2 TAB Acetaminophen (Tylenol Tab) 650 mg Q4H PRN PO 03/25/17 12:45 04/24/17 12:44 03/26/17 07:07 650 MG Ondansetron HCl (Zofran Inj) 4 mg Q6H PRN IV 03/25/17 12:45 04/24/17 12:44 03/25/17 15:01 4 MG Enoxaparin Sodium (Lovenox Inj) 30 mg Q12H SQ 03/26/17 08:00 04/25/17 07:59 03/26/17 19:34 30 MG Lactated Ringer's 1,000 ml @ 125 mls/hr Q8H IV 03/25/17 15:00 04/24/17 14:59 03/26/17 23:22 125 MLS/HR Albuterol Sulfate (Ventolin 0.083% 2.5MG/3ML Neb) 2.5 mg Q6 PRN INH 03/25/17 12:45 04/24/17 12:44 Albuterol (Ventolin Hfa Inhaler) 2 puffs QID PRN INH 03/25/17 12:45 04/24/17 12:44 Amlodipine Besylate (Norvasc Tab) 5 mg QAM PO 03/26/17 09:00 04/25/17 08:59 03/26/17 07:27 5 MG Aspirin (Ecotrin Tab) 81 mg QAM PO 03/26/17 09:00 04/25/17 08:59 03/26/17 07:26 81 MG Calcium Carbonate (Tums Chew Tab) 500 mg DAILY PRN PO 03/25/17 12:45 04/24/17 12:44 Cholecalciferol (Vitamin D Tab) 1,000 inter.unit QAM PO 03/26/17 09:00 04/25/17 08:59 03/26/17 07:25 1,000 INTER.UNIT Gabapentin (Neurontin Cap) 300 mg HS PO 03/25/17 21:00 04/24/17 20:59 03/26/17 19:35 300 MG Montelukast Sodium (Singulair Tab) 10 mg HS PO 03/25/17 21:00 04/24/17 20:59 03/26/17 19:36 10 MG Pramipexole Dihydrochloride (miraPEX TAB) 0.125 mg BID PO 03/25/17 21:00 04/24/17 20:59 03/26/17 19:34 0.125 MG jb-[id number]-Rqvvtadfmq Acetate (Vitamin E Cap) 400 interunit QDL PO 03/26/17 11:00 04/25/17 10:59 03/26/17 11:40 400 INTERUNIT Warfarin Sodium (Coumadin Tab) 2.5 mg SuTuThFrSa@1600 PO 03/25/17 16:00 04/24/17 15:59 03/25/17 20:24 2.5 MG Warfarin Sodium (Coumadin Tab) 5 mg MoWe@1600 PO 03/26/17 16:00 04/25/17 15:59 03/26/17 15:58 5 MG Artificial Tears (Artificial Tears) 1 drops HS OPB 03/25/17 21:00 04/24/17 20:59 03/26/17 19:34 1 DROPS Miscellaneous Information (Order Awaiting Action) 1 ea QS N/A 03/25/17 16:00 04/24/17 15:59 Meclizine HCl (Antivert Tab) 25 mg TID PRN PO 03/25/17 12:45 04/24/17 12:44 Potassium Citrate (Urocit-K Tab) 10 meq BID PO 03/25/17 21:00 04/24/17 20:59 03/26/17 19:36 10 MEQ Thyroid ([place] Thyroid Tab) 60 mg QAM PO 03/26/17 09:00 04/25/17 08:59 03/26/17 07:25 60 MG Hydromorphone HCl (Dilaudid Inj) 0.5 mg Q2HWA PRN IV 03/25/17 12:45 04/08/17 12:44 Promethazine HCl 25 mg/Sodium Chloride 51 ml @ 204 mls/hr Q6H PRN IV 03/25/17 16:00 04/24/17 15:59 03/25/17 16:38 204 MLS/HR Pantoprazole Sodium (Protonix Tab) 40 mg QAM PO 03/26/17 12:00 04/25/17 11:59 03/26/17 11:40 40 MG Vital Signs: Date Time Temp Pulse Resp B/P (MAP) Pulse Ox O2 Delivery O2 Flow Rate FiO2 03/27/17 02:00 84 123/64 (83) 94 Nasal Cannula 3.0 03/27/17 01:01 85 119/66 (83) 93 03/27/17 00:11 37.0 84 16 113/58 (76) 93 Nasal Cannula 3.0 03/26/17 23:59 Nasal Cannula 3.0 03/26/17 23:01 80 115/48 (70) 93 03/26/17 22:01 86 18 118/58 (78) 94 Nasal Cannula 3.0 03/26/17 21:01 94 113/63 (80) 94 03/26/17 20:44 87 120/58 (78) 93 03/26/17 20:01 86 16 120/58 (78) 92 Nasal Cannula 3.0 03/26/17 20:00 Nasal Cannula 3.0 03/26/17 19:01 84 102/61 (75) 93 03/26/17 18:00 83 20 107/61 (76) 94 Nasal Cannula 3.0 03/26/17 16:00 Nasal Cannula 3.0 03/26/17 16:00 37.0 86 20 112/65 (81) 96 Nasal Cannula 3.0 03/26/17 15:45 103 108/78 (88) 96 Nasal Cannula 3.0 03/26/17 15:42 91 130/66 (87) 96 Nasal Cannula 3.0 03/26/17 14:15 91 18 120/67 91 3.0 03/26/17 13:45 37.1 89 18 119/68 94 03/26/17 12:45 84 18 105/63 93 3.0 03/26/17 12:15 37.1 86 18 103/58 93 3.0 03/26/17 12:00 Nasal Cannula 3.0 03/26/17 12:00 37.0 88 18 97/69 92 3.0 03/26/17 11:50 36.9 93 18 85/46 92 3.0 03/26/17 11:12 84/52 (63) 03/26/17 11:10 98/69 (79) 75/44 (54) 57/37 (44) 03/26/17 09:30 83 89 03/26/17 09:00 87 91 03/26/17 08:37 86 96/60 (66) 03/26/17 08:30 81 93 03/26/17 08:25 93 106/53 (72) 90 03/26/17 08:20 92 74/47 (50) 93 03/26/17 08:19 90 71/51 (57) 93 03/26/17 08:15 91 90 03/26/17 08:02 94 106/81 (51) 93 75/37 03/26/17 08:00 96 (48) 91 75/36 03/26/17 08:00 Nasal Cannula CPAP 03/26/17 08:00 94 Nasal Cannula 2.0 03/26/17 07:37 92 121/62 (56) 92 86/41 03/26/17 07:00 91 (53) 92 81/40 03/26/17 06:01 83 113/63 (80) 94 03/26/17 06:00 83 20 115/49 (71) 93 Laboratory Results: Last 24 Hours Test 03/26/17 05:22 03/26/17 07:36 03/26/17 11:26 03/26/17 16:10 White Blood Count 6.86 K/uL Red Blood Count 3.53 M/uL Hemoglobin 9.1 g/dL Hematocrit 29.0 % Mean Corpuscular Volume 82.2 fL Mean Corpuscular Hemoglobin 25.8 pg Mean Corpuscular Hemoglobin Concent 31.4 g/dl Platelet Count 126 K/uL Mean Platelet Volume 9.0 fL Neutrophils (%) (Auto) 87.7 % Lymphocytes (%) (Auto) 5.8 % Monocytes (%) (Auto) 5.7 % Eosinophils (%) (Auto) 0.4 % Basophils (%) (Auto) 0.1 % Neutrophils # (Auto) 6.01 K/uL Lymphocytes # (Auto) 0.40 K/uL Monocytes # (Auto) 0.39 K/uL Eosinophils # (Auto) 0.03 K/uL Basophils # (Auto) 0.01 K/uL RDW Standard Deviation 48.6 fL RDW Coefficient of Variation 16.3 % Immature Granulocyte % (Auto) 0.3 % Immature Granulocyte # (Auto) 0.02 K/uL Sodium Level 137 mmol/L Potassium Level 4.8 mmol/L Chloride Level 106 mmol/L Carbon Dioxide Level 24 mmol/L Anion Gap 7.0 mmol/L Blood Urea Nitrogen 20 mg/dl Creatinine 1.43 mg/dl Est Creatinine Clear Calc Drug Dose 34.1 ml/min Estimated GFR () 39.7 Estimated GFR (Non- 34.3 BUN/Creatinine Ratio 13.9 Random Glucose 133 mg/dl Calcium Level 7.7 mg/dl Phosphorus Level 3.6 mg/dl Magnesium Level 2.2 mg/dl Bedside Glucose 152 mg/dl 138 mg/dl 137 mg/dl Test 03/26/17 18:20 03/26/17 19:51 03/27/17 04:23 Sodium Level 136 mmol/L 133 mmol/L Potassium Level 4.3 mmol/L 4.5 mmol/L Chloride Level 102 mmol/L 103 mmol/L Carbon Dioxide Level 28 mmol/L 27 mmol/L Anion Gap 6.0 mmol/L 3.0 mmol/L Blood Urea Nitrogen 20 mg/dl 18 mg/dl Creatinine 1.52 mg/dl 1.31 mg/dl Est Creatinine Clear Calc Drug Dose 32.1 ml/min 37.2 ml/min Estimated GFR () 36.9 44.1 Estimated GFR (Non- 31.8 38.1 BUN/Creatinine Ratio 13.2 13.6 Random Glucose 129 mg/dl 127 mg/dl Calcium Level 7.9 mg/dl 8.0 mg/dl Random Cortisol 19.60 mcg/dl Hemoglobin 9.0 g/dL 9.3 g/dL Hematocrit 27.9 % 29.8 % White Blood Count 6.84 K/uL Red Blood Count 3.58 M/uL Mean Corpuscular Volume 83.2 fL Mean Corpuscular Hemoglobin 26.0 pg Mean Corpuscular Hemoglobin Concent 31.2 g/dl Platelet Count 92 K/uL Mean Platelet Volume 9.3 fL Neutrophils (%) (Auto) 91.5 % Lymphocytes (%) (Auto) 3.5 % Monocytes (%) (Auto) 3.7 % Eosinophils (%) (Auto) 0.9 % Basophils (%) (Auto) 0.0 % Neutrophils # (Auto) 6.26 K/uL Lymphocytes # (Auto) 0.24 K/uL Monocytes # (Auto) 0.25 K/uL Eosinophils # (Auto) 0.06 K/uL Basophils # (Auto) 0.00 K/uL RDW Standard Deviation 48.2 fL RDW Coefficient of Variation 15.8 % Immature Granulocyte % (Auto) 0.4 % Immature Granulocyte # (Auto) 0.03 K/uL Platelet Estimate DECREASED Phosphorus Level 2.7 mg/dl Magnesium Level 2.0 mg/dl
[2017-03-27] MEDS: OXYCODONE/ACETAMINOPHEN 5-325 TAB PO PRN (06:04)
[2017-03-27] MEDS: POTASSIUM CITRATE 10 MEQ TAB PO SCH ×2 (08:37→20:56)
[2017-03-27] MEDS: CHOLECALCIFEROL 1000 INTER.UNIT TAB PO SCH (08:37)
[2017-03-27] MEDS: PRAMIPEXOLE DIHYDROCHLORIDE 0.25MG TAB PO SCH ×2 (08:38→20:56)
[2017-03-27] MEDS: ARMOUR THYROID 30 MG TAB PO SCH (08:38)
[2017-03-27] MEDS: PANTOprazole SOD 40 MG TAB PO SCH (08:38)
[2017-03-27] MEDS: ASPIRIN 81 MG ECTAB PO SCH (08:38)
[2017-03-27] MEDS: ENOXAPARIN 30 MG/0.3 ML SYR SQ SCH ×2 (08:38→20:58)
[2017-03-27] MEDS: AMLODIPINE BESYLATE 5 MG TAB PO SCH (08:42)
[2017-03-27] MEDS: LACTATED RINGER'S 1000ML 1,000 ML IV SCH (08:42)
[2017-03-27 09:27] LABS: INR 1.7 (0.9-1.1)
[2017-03-27] MEDS: TOCOPHERYL, DL-ALPHA 400 INTER.UNIT CAP PO SCH (10:58)
[2017-03-27] MEDS: MECLIZINE HCL 25 MG TAB PO PRN (10:58)
--- NOTE | 2017-03-27 13:02 | Progress Note ---
Progress Note Date of Service: Mar 27, 2017. Subjective Feeling better today. Not dizzy today Objective Vital Signs Vital Signs Past 12 Hours Date Time Temp Pulse Resp B/P (MAP) Pulse Ox O2 Delivery O2 Flow Rate FiO2 03/27/17 12:11 36.8 88 20 102/52 (69) 99 Nasal Cannula 2.0 03/27/17 12:00 95 Nasal Cannula 2.0 03/27/17 09:37 104/89 (94) 03/27/17 09:30 88 94 03/27/17 08:16 93 14 92 Nasal Cannula 3.0 03/27/17 08:10 37.0 99 100/51 (67) 94 03/27/17 08:08 94 110/45 (66) 84 03/27/17 08:01 88 114/63 (80) 93 03/27/17 08:00 94 Nasal Cannula 2.0 03/27/17 08:00 Nasal Cannula CPAP 03/27/17 08:00 89 93 03/27/17 05:31 107 121/85 (97) 91 03/27/17 05:17 107 119/96 (104) 91 03/27/17 05:15 106 152/62 (92) 95 03/27/17 05:10 112 128/62 (84) 90 03/27/17 05:07 93 130/60 (83) 92 03/27/17 05:01 93 133/75 (94) 92 03/27/17 04:02 37.2 96 147/69 (95) 91 Nasal Cannula 3.0 03/27/17 04:00 Nasal Cannula 3.0 03/27/17 03:01 88 134/73 (93) 91 Nasal Cannula 3.0 03/27/17 02:00 84 123/64 (83) 94 Nasal Cannula 3.0 Exam Dressings intact. Feet with doppler flow Laboratory and Microbiology Results Past 24 Hours Test 03/26/17 16:10 03/26/17 18:20 03/26/17 19:51 03/27/17 04:23 Range/Units Bedside Glucose 137 70-90 mg/dl Sodium Level 136 133 136-145 mmol/L Potassium Level 4.3 4.5 3.5-5.1 mmol/L Chloride Level 102 103 98-107 mmol/L Carbon Dioxide Level 28 27 21-32 mmol/L Anion Gap 6.0 3.0 3-11 mmol/L Blood Urea Nitrogen 20 18 7-18 mg/dl Creatinine 1.52 1.31 0.60-1.20 mg/dl Est Creatinine Clear Calc Drug Dose 32.1 37.2 ml/min Estimated GFR () 36.9 44.1 Estimated GFR (Non- 31.8 38.1 BUN/Creatinine Ratio 13.2 13.6 10-20 Random Glucose 129 127 70-99 mg/dl Calcium Level 7.9 8.0 8.5-10.1 mg/dl Random Cortisol 19.60 mcg/dl Hemoglobin 9.0 9.3 12.0-16.0 g/dL Hematocrit 27.9 29.8 37-47 % White Blood Count 6.84 4.8-10.8 K/uL Red Blood Count 3.58 4.2-5.4 M/uL Mean Corpuscular Volume 83.2 80-100 fL Mean Corpuscular Hemoglobin 26.0 25-34 pg Mean Corpuscular Hemoglobin Concent 31.2 32-36 g/dl Platelet Count 92 130-400 K/uL Mean Platelet Volume 9.3 7.4-10.4 fL Neutrophils (%) (Auto) 91.5 % Lymphocytes (%) (Auto) 3.5 % Monocytes (%) (Auto) 3.7 % Eosinophils (%) (Auto) 0.9 % Basophils (%) (Auto) 0.0 % Neutrophils # (Auto) 6.26 1.4-6.5 K/uL Lymphocytes # (Auto) 0.24 1.2-3.4 K/uL Monocytes # (Auto) 0.25 0.11-0.59 K/uL Eosinophils # (Auto) 0.06 0-0.5 K/uL Basophils # (Auto) 0.00 0-0.2 K/uL RDW Standard Deviation 48.2 36.4-46.3 fL RDW Coefficient of Variation 15.8 11.5-14.5 % Immature Granulocyte % (Auto) 0.4 % Immature Granulocyte # (Auto) 0.03 0.00-0.02 K/uL Platelet Estimate DECREASED Phosphorus Level 2.7 2.5-4.9 mg/dl Magnesium Level 2.0 1.8-2.4 mg/dl Test 03/27/17 09:00 Range/Units Prothrombin Time 17.5 9.0-12.0 SECONDS Prothromb Time International Ratio 1.7 0.9-1.1 Imp: Post type III endoleak repaired Plan: Will transfer to telemetry today Increase activity
[2017-03-27] MEDS: WARFARIN SOD 2.5 MG TAB PO SCH (17:15)
[2017-03-27] MEDS: GABAPENTIN 300 MG CAP PO SCH (20:56)
[2017-03-27] MEDS: MONTELUKAST SOD 10 MG TAB PO SCH (20:56)
[2017-03-27] MEDS: ARTIFICIAL TEARS OP SOLN OPB SCH (20:57)
[2017-03-28] MEDS: OXYCODONE/ACETAMINOPHEN 5-325 TAB PO PRN (01:27)
[2017-03-28 04:45] VITALS: BP 109/69; PULSE 80; TEMP 37.2; O2SAT 95
[2017-03-28] MEDS: ACETAMINOPHEN 325 MG TAB PO PRN (05:43)
[2017-03-28 06:16] LABS: BASO % 0.2 %; BASO ABS # 0.01 K/uL (0-0.2); EOS % 4.3 %; EOS ABS # 0.25 K/uL (0-0.5); HEMATOCRIT 28.7 % (37-47); HEMOGLOBIN 8.9 g/dL (12.0-16.0); IG# 0.04 K/uL (0.00-0.02); LYMPH ABS # 0.47 K/uL (1.2-3.4); MEAN CELL VOLUME 82.7 fL (80-100); MEAN CORPUSCULAR HEMOGLOBIN 25.6 pg (25-34); MONO % 8.2 %; MONO ABS # 0.48 K/uL (0.11-0.59); NEUT % 78.6 %; NEUT ABS # 4.62 K/uL (1.4-6.5); PLATELET COUNT 113 K/uL (130-400); RED CELL DISTRIBUTION WIDTH CV 15.9 % (11.5-14.5); RED CELL DISTRIBUTION WIDTH SD 47.7 fL (36.4-46.3); WHITE BLOOD COUNT 5.87 K/uL (4.8-10.8)
[2017-03-28 07:08] VITALS: BP 100/64; PULSE 71; TEMP 37; O2SAT 93
[2017-03-28] MEDS: ENOXAPARIN 30 MG/0.3 ML SYR SQ SCH (07:20)
[2017-03-28] MEDS: AMLODIPINE BESYLATE 5 MG TAB PO SCH (07:21)
[2017-03-28] MEDS: PRAMIPEXOLE DIHYDROCHLORIDE 0.25MG TAB PO SCH (07:21)
[2017-03-28] MEDS: MECLIZINE HCL 25 MG TAB PO PRN (07:22)
[2017-03-28] MEDS: CHOLECALCIFEROL 1000 INTER.UNIT TAB PO SCH (07:22)
[2017-03-28] MEDS: ASPIRIN 81 MG ECTAB PO SCH (07:22)
[2017-03-28] MEDS: POTASSIUM CITRATE 10 MEQ TAB PO SCH (07:23)
[2017-03-28] MEDS: PANTOprazole SOD 40 MG TAB PO SCH (07:23)
[2017-03-28] MEDS: ARMOUR THYROID 30 MG TAB PO SCH (07:23)
[2017-03-28 08:00] VITALS: O2SAT 93
[2017-03-28 09:24] VITALS: O2SAT 96
--- NOTE | 2017-03-28 10:27 | Clinical Documentation Query ---
CLINICAL DOCUMENTATION QUERY QUERY 1 OF 2 82 yo female s/p repair of Type 3 endoleak. Initial preoperative hgb 13.1 on 02/27/2017 trending down to 9.1 on 03/26/2017. In your clinical opinion is this patient being managed for: ( ) Acute blood-loss anemia ( ) Not Agree ( ) Other explanation of clinical findings (Please Explain) ( ) Unable to determine (Please Define) ( ) Need to Discuss The medical record reflects the following clinical findings, treatment, and risk factors. Clinical Indicators: Hgb 13.1 trending down to 9.1 Treatment: Type/cross PRBCs, transfused 1 unit, serial CBCs, IV hydration Risk Factors: S/P surgical event QUERY 2 OF 2 The patient's GFR range from January to March are 34.3 to 40.6. In your clinical opinion is this patient being managed for: ( ) Chronic kidney disease, stage 3 ( ) Not Agree ( ) Other explanation of clinical findings (Please Explain) ( ) Unable to determine (Please Define) ( ) Need to Discuss The medical record reflects the following clinical findings, treatment, and risk factors. Clinical Indicators: As above Treatment: Serial PRPs, IV hydration Risk Factors: Age, HTN, Afib Please clarify and document your clinical opinion in the progress notes and discharge summary. Terms such as "probable", "suspected", "likely", "questionable", "possible", or "still to be ruled out" are acceptable. IF IN AGREEMENT, YOU MUST DOCUMENT ABOVE DIAGNOSTIC STATEMENT IN DAILY PROGRESS NOTES AND DISCHARGE SUMMARY. This document is not part of the patient's record. Thank You, Christy Huertas RN [phone]
[2017-03-28] MEDS: TOCOPHERYL, DL-ALPHA 400 INTER.UNIT CAP PO SCH (10:36)
[2017-03-28] MEDS ORDERED: DOCU-94 PO (11:15)
[2017-03-28] MEDS ORDERED: ENOX30IN4 SQ (11:15)
[2017-03-28] MEDS ORDERED: OXYC-57 PO (11:15)
[2017-03-28] MEDS ORDERED: FRRS300 PO (11:15)
--- NOTE | 2017-03-28 11:20 | Discharge Instructions ---
Discharge Instructions Date of Service Mar 28, 2017. Admission Reason for Admission: Type 1 Endoleak Discharge Discharge Diagnosis / Problem: Post relining of endograft and Right to Left femoral artery bypass Discharge Goals Goal(s): Therapeutic intervention, Prevent Disease Progression Activity Recommendations Activity Limitations: per Instructions/Follow-up section . Instructions / Follow-Up Instructions / Follow-Up 1. CALL YOUR ANTICOAGULATION CLINIC TO HAVE INR RECHECKED NEXT WEEK. 2. FOLLOW UP IN OFFICE WITH DR ABBASI or KARUNA EVANS PA-C, IN 2-3 WEEKS. SPECIAL CARE INSTRUCTIONS: Medications: * Continue to take your medications as directed. Incision/Puncture Site Care: * You will have an incision or puncture in each of your groins. Liquid glue will be used to seal your incisions/puncture site. This will lift off as the incisions/ puncture sites heal. * If Liquid glue is not used, there will be small dressings covering your incisions. After you get home, you may remove the dressings and shower - allowing the warm soapy water to run over it. * Be sure to dry the sites well and keep them dry. * DO NOT SOAK IN A TUB/POOL/etc. UNTIL ALL SURGICAL SITES ARE HEALED. DO NOT REMOVE THE GLUE UNTIL THE INCISIONS HEAL. Restrictions: * Limit yourself to ancillary services manager therapy activity for the first week. * You may walk and go up and down steps. * Avoid excessive bending or movement at the level of the incisions or punctures. Risks and Possible Complications: * Infection/Drainage/Bleeding - Drainage or bleeding from the incisions/ puncture site should be minimal. If you have excessive bleeding or drainage, call our office ([phone]) right away. * Pain/Numbness - You may experience some mild pain or soreness at your incision sites. You may also have some numbness around the incisions or into the insides of your thighs. Bruising is normal and should resolve within 2 weeks. * Changes in Appetite or Bowel Habits - Mostly related to anesthesia and pain medication, some patients have reported decreased appetite and/or problems with constipation. These symptoms usually improve over a few weeks. Remembering to take an prze-jwa-jvfqzbw stool softener, as directed, will help you to avoid constipation. Call our office and seek emergent treatment if you develop: * Fever or chills * Have a temperature greater than 101 degrees F * Any redness or purulent drainage from your incisions or punctures * Severe abdominal, chest or back pain SKIN IRRITATION: * You may experience some redness and/or swelling in the area where radiation was administered. If any skin irritation occurs, please contact your family physician. You will be receiving a call from the Vascular Surgery Nurse after you are discharged. FOLLOW UP VISIT: It is important for you to keep your follow up appointments with your medical provider. Keep any scheduled doctor appointments. Current Hospital Diet Patient's current hospital diet: AHA Diet (Heart Healthy) Discharge Diet Recommended Diet: AHA Diet (Heart Healthy) Procedures Procedures Performed: Bilateral cannulation of aorta, Repair Type 3 endoleak with relining, Percutaneous Transluminal Angioplasty Right illiac artery, Embolization plug Left common illiac artery, Bilateral femoral artery exposure, Repair of Right common femoral artery with interposition graft, Cross femoral bypass right to left. Right Iliac Extension. Pending Studies Studies pending at discharge: no Medical Emergencies . Who to Call and When: Medical Emergencies: If at any time you feel your situation is an emergency, please call 911 immediately. . Non-Emergent Contact Non-Emergency issues call your: Surgeon Call Non-Emergent contact if: your pain is worsening, your pain is concerning you, wound has increased drainage, wound has increased redness . "Provider Documentation" section prepared by Karuna Evans. . VTE Core Measure Inpt VTE Proph given/why not?: Enoxaparin (Lovenox) [place] Drug Monitoring Program Search Results: no issues identified
[2017-03-28 11:56] VITALS: BP 127/76; PULSE 78; TEMP 36.6; O2SAT 90
--- NOTE | 2017-03-28 12:09 | Progress Note ---
Progress Note Date of Service: Mar 28, 2017. Subjective 82 yo f with multiple medical problems, POD # 3 after relining of endograft and R to L fem fem bypass d/t a large endoleak in previously placed EVAR, seen in f/ u today. Pt admits pain in BL groins and across pelvis. Denies any lower leg or foot pain. Ambulating with walker. Admits fatigue/malaise. Denies WELLS, fever, chills, chest pain, diziness, abd pain, N/V, rest pain, other complaints. Objective Vital Signs Vital Signs Past 12 Hours Date Time Temp Pulse Resp B/P (MAP) Pulse Ox O2 Delivery O2 Flow Rate FiO2 03/28/17 11:56 36.6 78 20 127/76 (93) 90 03/28/17 11:24 37.0 71 18 93 Nasal Cannula 03/28/17 08:00 93 Nasal Cannula 3.0 03/28/17 07:08 37.0 71 18 100/64 (76) 93 Nasal Cannula 3.0 03/28/17 04:45 37.2 80 16 109/69 (82) 95 Nasal Cannula 3.0 03/28/17 04:00 Nasal Cannula 2.0 03/28/17 00:00 Nasal Cannula 2.0 Exam CONST: A&O x3, NAD, obese, mildly chronically ill appearing female CHEST: Irregular, lungs decreased, but ctab ABD: soft. Tender over lower pelvis with edema and mild ecchymosis. EXT: BL groin incisions C/I with susan. Minimal serous drainage from wounds. + local edema, tenderness and ecchymosis. Nonpalpable distal pulses, but + LLE DP with doppler and peroneal RLE with doppler Laboratory and Microbiology Results Past 24 Hours Test 03/28/17 05:42 Range/Units White Blood Count 5.87 4.8-10.8 K/uL Red Blood Count 3.47 4.2-5.4 M/uL Hemoglobin 8.9 12.0-16.0 g/dL Hematocrit 28.7 37-47 % Mean Corpuscular Volume 82.7 80-100 fL Mean Corpuscular Hemoglobin 25.6 25-34 pg Mean Corpuscular Hemoglobin Concent 31.0 32-36 g/dl Platelet Count 113 130-400 K/uL Mean Platelet Volume 9.0 7.4-10.4 fL Neutrophils (%) (Auto) 78.6 % Lymphocytes (%) (Auto) 8.0 % Monocytes (%) (Auto) 8.2 % Eosinophils (%) (Auto) 4.3 % Basophils (%) (Auto) 0.2 % Neutrophils # (Auto) 4.62 1.4-6.5 K/uL Lymphocytes # (Auto) 0.47 1.2-3.4 K/uL Monocytes # (Auto) 0.48 0.11-0.59 K/uL Eosinophils # (Auto) 0.25 0-0.5 K/uL Basophils # (Auto) 0.01 0-0.2 K/uL RDW Standard Deviation 47.7 36.4-46.3 fL RDW Coefficient of Variation 15.9 11.5-14.5 % Immature Granulocyte % (Auto) 0.7 % Immature Granulocyte # (Auto) 0.04 0.00-0.02 K/uL Hypochromasia PRESENT ASSESSMENT and PLAN: s/p Relining of AAA endograft and R to L fem fem bypasss Endoleak Pt doing well post op. D/C home today. RX for pain med, iron, colace and lovenox. Continue lovenox inj until f/u with [facility] next week.
[2017-03-28 12:15] VITALS: O2SAT 93
--- NOTE | 2017-04-04 13:13 | DISCHARGE SUMMARY ---
ADMISSION DIAGNOSES: 1. History of percutaneous endovascular aneurysm repair and type 1 endoleak. 2. Peripheral arterial disease. DISCHARGE DIAGNOSES: 1. Status post relining of the endograft and right to left femoral to femoral artery bypass. 2. History of abdominal aortic aneurysm repair with a type 1 endoleak. DISCHARGE CONDITION: Stable. CONSULTATIONS IN THE HOSPITAL: Included critical care during her ICU stay. PROCEDURES IN THE HOSPITAL: Procedure was called repair of type 3 endoleak with relining of endograft, percutaneous transluminal angioplasty of the right iliac artery, embolization plug of the left common iliac artery, repair of right common femoral artery with interposition graft, and right to left femoral to femoral artery bypass. This was performed on 03/25/2017 with an EBL of 300 mL and no other significant complications. HISTORY OF PRESENT ILLNESS: Ms. Dillon is an 82-year-old female who had previously undergone a percutaneous endovascular aneurysm repair by Dr. Gee at [facility] back in 2013. The patient states that she was eventually lost to follow up with Dr. Gee and her family physician had ordered some imaging earlier this year. She stated that when her family physician had told her that there were some concerns on the imaging that she had and they tried to have the patient follow up again with Dr. Gee, they discovered that her previous surgeon was no longer practicing in the area. They recommended to have her follow up with another vascular surgeon and she came to our office for evaluation. Due to the severity of her endoleak, which was initially thought to be type 1 and then found to be type 3 during surgery, she was recommended to undergo focused arteriography and possible treatment. During her initial focused angiography, it was discovered that she did have a very large endoleak and due to the concerns for increasing size of her aneurysm, she was recommended to undergo relining of her endograft with a femoral to femoral artery bypass as a means of repair due to inability to completely reline those limbs. HOSPITAL COURSE: The patient was admitted after undergoing her relining procedure on 03/25/2017. The patient did essentially well postoperatively. She did require 1 unit of blood postoperatively due to an acute blood loss from surgery. Her pain was under control and she had no further complications. She was moved to the medical floor and felt to be stable enough for discharge on postop day #3. PHYSICAL EXAMINATION: VITAL SIGNS: On day of discharge, the patient's vital signs are as follows: Temperature 36.6, pulse 78, blood pressure 127/76, and pulse oximetry of 90% on room air. CONSTITUTIONAL: The patient is a morbidly obese, chronically ill-appearing elderly female in no acute distress. She ambulated slowly, but with a walker. HEAD: Normocephalic and atraumatic. EYES: EOMI. ENMT: Demonstrate no hearing loss, rhinorrhea or pharyngeal erythema. NECK: Supple and nontender with midline trachea without masses or crepitus. LUNGS: Demonstrate no dyspnea. They are clear to auscultation bilaterally though somewhat decreased throughout. CARDIOVASCULAR: Demonstrated nondisplaced apical impulse with an irregular rhythm. She did have a 2/6 systolic ejection murmur. Her peripheral pulses are full and equal in all extremities unless otherwise noted, specifically they are normal in her carotid, brachial and radial. Femoral pulses were difficult to palpate due to body habitus and recent surgery, although they appeared to be +3. Her distal pulses are nonpalpable. She did have dopplerable peroneal pulse in the right leg and a dopplerable DP on the left. Her toes were warm and pink with no sign of distal ischemia. NEUROLOGIC: The patient had grossly intact cranial nerves and grossly intact sensation. ABDOMEN: Soft and nontender with normoactive bowel sounds in all 4 quadrants without guarding or rebound. EXTREMITIES: Bilateral femoral incisions are well approximated with susan and healing appropriately. They are tender to palpation. There is some mild local ecchymosis, no significant discharge was noted. DIET UPON DISCHARGE: Low-cholesterol AHA and diabetic diet. MEDICATIONS: Reconciled in the chart and are as per her discharge instructions. FOLLOWUP: With Dr. Hopper within 2 weeks for reevaluation and removal of susan. The patient is advised to call the office for any other questions.
[2017-05-05] MEDS ORDERED: FERR1TAB13 PO (12:20)
== END 2017-03-28 14:16 | disposition home health service (06) | DRG 269 ==
LOC: C.ACU 05:15 → C.MSICU 12:44 → ENRESERV 14:19 → C.MED 03-27 20:03
PROVIDERS: ADMIT Surgery Vascular Surgery; ATTEND Surgery Vascular Surgery
PROC: 04V03DZ Restriction of Abdominal Aorta with Intraluminal Device, Percutaneous Approach (ICD-10-PCS; principal; 2017-03-25 07:30)
PROC: 041K0JJ Bypass Right Femoral Artery to Left Femoral Artery with Synthetic Substitute, Open Approach (ICD-10-PCS; principal; 2017-03-25 07:30)
DX: T82.330A Leakage of aortic (bifurcation) graft (replacement), initial encounter (principal); Z68.42 Body mass index [BMI] 45.0-49.9, adult; I73.9 Peripheral vascular disease, unspecified; J44.9 Chronic obstructive pulmonary disease, unspecified; E03.9 Hypothyroidism, unspecified; E66.9 Obesity, unspecified; D64.9 Anemia, unspecified; I48.91 Unspecified atrial fibrillation; I10 Essential (primary) hypertension; I95.1 Orthostatic hypotension; G47.30 Sleep apnea, unspecified; G57.93 Unspecified mononeuropathy of bilateral lower limbs; Z79.01 Long term (current) use of anticoagulants; Z79.82 Long term (current) use of aspirin; Z79.899 Other long term (current) drug therapy; Z87.891 Personal history of nicotine dependence; Z88.0 Allergy status to penicillin; Z88.5 Allergy status to narcotic agent; Z88.8 Allergy status to other drugs, medicaments and biological substances; Z91.030 Bee allergy status; Y83.2 Surgical operation with anastomosis, bypass or graft as the cause of abnormal reaction of the patient, or of later complication, without mention of misadventure at the time of the procedure

== ENCOUNTER 2017-05-07 08:19 | Day surgery (SDC) | payer OTHER, MEDICARE ==
[2017-05-05 12:21] VITALS: Ht 167.6 cm; Wt 102.4 kg
[2017-05-05 12:40] LABS: BASO % 0.5 %; BASO ABS # 0.02 K/uL (0-0.2); EOS % 4.3 %; EOS ABS # 0.17 K/uL (0-0.5); HEMOGLOBIN 12.1 g/dL (12.0-16.0); IG# 0.01 K/uL (0.00-0.02); LYMPH ABS # 0.44 K/uL (1.2-3.4); MEAN CORPUSCULAR HEMOGLOBIN 27.1 pg (25-34); MEAN CORPUSCULAR HGB CONC 31.8 g/dl (32-36); MEAN PLATELET VOLUME 9.1 fL (7.4-10.4); MONO ABS # 0.32 K/uL (0.11-0.59); NEUT % 75.9 %; NEUT ABS # 3.04 K/uL (1.4-6.5); PLATELET COUNT 145 K/uL (130-400); RED CELL DISTRIBUTION WIDTH CV 16.4 % (11.5-14.5); RED CELL DISTRIBUTION WIDTH SD 51.2 fL (36.4-46.3)
[2017-05-05 12:50] LABS: CALCIUM 8.8 mg/dl (8.5-10.1); CREATININE 1.2 mg/dl (0.60-1.20); POTASSIUM 4.3 mmol/L (3.5-5.1)
--- NOTE | 2017-05-05 13:04 | PAT Medication Instructions ---
Service Date May 05, 2017. Current Home Medication List Albuterol Sulf (Proventil 0.083% 2.5MG/3ML), 2.5 MG INH Q6 PRN for Wheezing Albuterol Sulfate (Proventil Hfa), 2 PUFF QID PRN for SOB/Wheezing Artificial Tear Solution (Genteal Tears Liquid Drop 0.1-0.2-0.3 %), 1 DROP OPB HS Aspirin (Aspirin Ec), 81 MG PO QAM Calcium Carbonate (Tums), 1 TAB UD PRN for HEARTBURN Cholecalciferol (Vitamin D3), 1 TAB PO QAM Cyanocobalamin (Vitamin B12), QAM Epinephrine (Epipen), 0.3 MG IM UD Ferrous Sulfate (Kp Ferrous Sulfate), Unknown Dose PO QAM Fish Oil ([place]-3), 1 CAP PO QAM Gabapentin (Neurontin), 300 MG PO HS Ketotifen Fumarate (Ophth) (Zaditor 0.025% Oph), 1 DROP OP Q12H PRN for DRY EYES Magnesium Gluconate (Magnesium Gluconate), QAM Meclizine HCl (Meclizine HCl), 1 TAB PO TID Montelukast Sodium (Singulair), 1 TAB PO HS Pramipexole (Mirapex), 0.125 MG PO BID Vitamin E (E-400), 1 CAP QDL Warfarin Sod (Jantoven), 2.5 MG PO QDD [potassium citrate], 10 MEQ BID [thyroid desiccated], 65 MG QAM Medication Instructions For Your Scheduled Surgery -Contact your surgeon and your prescriber for instructions for: Aspirin (Aspirin Ec), 81 MG PO QAM Warfarin Sod (Jantoven), 2.5 MG PO QDD -Continue as directed: Epinephrine (Epipen), 0.3 MG IM UD - Hold the following medications for two weeks before surgery: Fish Oil ([place]-3), 1 CAP PO QAM Vitamin E (E-400), 1 CAP QDL - Hold the following medications 24 hours prior to surgery: Pramipexole (Mirapex), 0.125 MG PO BID - Hold the following medications the morning of surgery: Calcium Carbonate (Tums), 1 TAB UD PRN for HEARTBURN Cholecalciferol (Vitamin D3), 1 TAB PO QAM Cyanocobalamin (Vitamin B12), QAM Ferrous Sulfate (Kp Ferrous Sulfate), Unknown Dose PO QAM Magnesium Gluconate (Magnesium Gluconate), QAM [potassium citrate], 10 MEQ BID - Take the following medications the morning of surgery with a sip of water: Albuterol Sulf (Proventil 0.083% 2.5MG/3ML), 2.5 MG INH Q6 PRN for Wheezing (if needed) Albuterol Sulfate (Proventil Hfa), 2 PUFF QID PRN for SOB/Wheezing (if needed, and bring it with you to the hospital) Ketotifen Fumarate (Ophth) (Zaditor 0.025% Oph), 1 DROP OP Q12H PRN for DRY EYES (if needed) Meclizine HCl (Meclizine HCl), 1 TAB PO TID [thyroid desiccated], 65 MG QAM - Take the following medications as scheduled the night before surgery: Albuterol Sulf (Proventil 0.083% 2.5MG/3ML), 2.5 MG INH Q6 PRN for Wheezing (if needed) Albuterol Sulfate (Proventil Hfa), 2 PUFF QID PRN for SOB/Wheezing (if needed) Artificial Tear Solution (Genteal Tears Liquid Drop 0.1-0.2-0.3 %), 1 DROP OPB HS Calcium Carbonate (Tums), 1 TAB UD PRN for HEARTBURN (if needed) Gabapentin (Neurontin), 300 MG PO HS Ketotifen Fumarate (Ophth) (Zaditor 0.025% Oph), 1 DROP OP Q12H PRN for DRY EYES (if needed) Meclizine HCl (Meclizine HCl), 1 TAB PO TID Montelukast Sodium (Singulair), 1 TAB PO HS [potassium citrate], 10 MEQ BID If you have any questions please call us at [phone] or [phone] or [phone]
[~2017-05-07] VITALS: Ht 167.6 cm; Wt 102.4 kg
--- NOTE | 2017-05-07 06:01 | History and Physical ---
History & Physical Date of Service May 07, 2017. History & Physical CC: Right groin incision dehiscence HPI: Ms. Dillon recently underwent repair of her Type I endoleak with a cross fem bypass. She has developed a dehiscence of her right groin wound. She denies any purulent drainage. ALLERGIES: INCLUDE CRESTOR, DEMEROL, LIPITOR, MORPHINE AND PENICILLIN. HOME MEDICATIONS: Reconciled on the chart and include albuterol for nebulization, amlodipine, artificial tears, aspirin, calcium carbonate, EpiPen 2 pack, fish oil, gabapentin, Genteal ophthalmic gel, magnesium gluconate, meclizine, Mirapex, Nature-Throid, potassium citrate, ProAir HFA inhaler, Singulair, vitamin B12, vitamin D3, vitamin E, Welchol and Zaditor ophthalmic solution. PAST MEDICAL HISTORY: Positive for abdominal aortic aneurysm status post repair , cervical spinal stenosis, chronic back pain, chronic obstructive pulmonary disease, degenerative disk disease, hypothyroidism, irritable bowel syndrome, idiopathic neuropathy, restless leg syndrome, sleep apnea, hypertension. PAST SURGICAL HISTORY: Positive for the abdominal aortic aneurysm endovascular repair in 2013, cataract extractions, cholecystectomy, colonoscopy with polyp removal, dilatation and curettage and excision of lipoma on the forehead and the leg, left wrist open reduction internal fixation, ligament repair in the right knee. SOCIAL HISTORY: Positive for a past history of tobacco use. The patient was smoking 1 pack per day until the year 1999. She says she occasionally has 1 alcoholic beverage, but does not indulge. FAMILY HISTORY: Positive for heart disease, hypertension, celiac sprue, lung disease, arthritis, schizophrenia, glaucoma. REVIEW OF SYSTEMS: Negative for fatigue, fevers, sweats, weight loss, abnormal moles or rashes, vision changes or photophobia, ear pain, sinus problems or sore throat. She does admit to chronic cough and dyspnea on exertion, which is chronic for her. She denies any worsening of this. She denies any chest pain or edema. She denies abdominal pain, nausea, vomiting, diarrhea, constipation, dysuria, hematuria, muscle weakness, headaches, dizziness, or seizures. PHYSICAL EXAMINATION: Her vital signs today were as follows: Blood pressure 128/78 in the right arm, 134/70 in the left, heart rate 72, and oxygen saturation 96% on room air. The patient is 165.1 cm tall and weighs 107.5 kg. Constitutional: In general, the patient is an obese, chronically ill-appearing , elderly female in no acute distress. She ambulates with a cane. She is active, alert and oriented x4 with normal recent and remote memory. Head is normocephalic and atraumatic. Eyes are EOMI. ENMT exam demonstrates no hearing loss, rhinorrhea or pharyngeal erythema. Neck is supple, nontender with midline trachea without masses or crepitus. Lung exam demonstrates no dyspnea, but are significantly decreased throughout. She appears to be breathing rather shallowly. She has no use of accessory muscles and does demonstrate an occasional wheeze. Cardiovascular demonstrates a regular rate and rhythm with a 2/6 systolic ejection murmur. Peripheral pulses are full and equal in all extremities unless otherwise noted, specifically they are normal in her carotid, brachial and radial pulses. Femoral pulses are +2. Distal lower extremity pulses are nonpalpable. She has capillary refill of 4 seconds bilaterally. There is no sign of distal ischemia, discoloration or ulcerations. Abdomen is soft, nontender with normoactive bowel sounds in all 4 quadrants without guarding or rebound. There is no flank or CVA tenderness. Musculoskeletal exam demonstrates normal tone and strength for age. Bilateral upper extremities demonstrate no cyanosis, edema, clubbing, varicosities or ulcers. Bilateral lower extremities do demonstrate trace to 1+ edema with some skin changes consistent with chronic venous insufficiency. Neurologic: The patient has grossly intact cranial nerves and grossly intact sensation. ASSESSMENT: Right groin wound dehiscence PLAN: Patient is admitted for debridement of her right groin wound and possible wound vac placement. I have discussed the risks options and benefits of the procedure with the patient. The patient understands the risks options and benefits and agrees to the procedure.
[~2017-05-07 08:19] MED LIST changes: -AMLO-110 PO; +CLINDAMYCIN 600 MG/54 ML D5W IV SCH; +FERR1TAB13 PO; +LACTATED RINGER'S 1000ML 1,000 ML IV SCH; -WARF5TAB7 PO
[2017-05-07] MEDS ORDERED: FENTANYL CITRATE INJ 50 MCG/1 ML 2 ML VIAL ONE (08:44)
[2017-05-07 09:12] VITALS: BP 192/86; PULSE 63; TEMP 36.7; O2SAT 97
[2017-05-07 09:41] LABS: CALCIUM 8.9 mg/dl (8.5-10.1); CREATININE 1.13 mg/dl (0.60-1.20); POTASSIUM 3.9 mmol/L (3.5-5.1)
[2017-05-07 09:44] LABS: INR 3.2 (0.9-1.1)
[2017-05-07] MEDS ORDERED: ATROPINE SULFATE 0.1 MG/ML 5ML SYR IV PRN (09:45)
[2017-05-07] MEDS ORDERED: FENTANYL CITRATE INJ 50 MCG/1 ML 2 ML VIAL IV PRN (09:45)
[2017-05-07] MEDS ORDERED: ONDANSETRON INJ 2 MG/ML 2 ML VIAL IV PRN (09:45)
[2017-05-07] MEDS ORDERED: EpHEDrine SULFATE INJ 50 MG/ML AMP IV PRN (09:45)
[2017-05-07] MEDS ORDERED: BACITRACIN 50000 UNIT VIAL ONE (10:19)
[2017-05-07] MEDS ORDERED: PROPOFOL IV EMULSION 10 MG/ML 20 ML VIAL IV ONE (10:36)
[2017-05-07] MEDS ORDERED: LIDOCAINE 2% 20 MG/ML 5ML SYR IV ONE (10:36)
[2017-05-07] MEDS ORDERED: ONDANSETRON INJ 2 MG/ML 2 ML VIAL ONE (10:36)
[2017-05-07] MEDS ORDERED: EpHEDrine SULFATE 50MG/5ML SYR ONE (10:36)
--- NOTE | 2017-05-07 10:40 | [facility] Post Operative Brief Note ---
Immediate Operative Summary Operative Date May 07, 2017. Pre-Operative Diagnosis Right Groin dehiscence Post-Operative Diagnosis Right Groin dehiscence Procedure(s) Performed Right Groin Debridement and Irrigation Surgeon Dr. Jay Hopper Accounting Director Surgeon(s) Dr. Ludy Roque (Fellow) Estimated Blood Loss 5cc Findings Consistent with Post-Op Diagnosis Specimens Microbiology Deep groin wound Incision- routine culture and sensitive, anaerobic and aerobic X2 same site Drains None Anesthesia Type General Disposition Accompanied Pt To Recover: no Disposition: Recovery Room / PACU
[2017-05-07] MEDS ORDERED: TRAM-10 PO (11:12)
[2017-05-07] MEDS ORDERED: SULF800T23 PO (11:12)
--- NOTE | 2017-05-07 11:14 | Discharge Instructions ---
Discharge Instructions Date of Service May 07, 2017. Visit Reason for Visit: Right Groin Surgical Site Infection Discharge Discharge Diagnosis / Problem: Dehiscence right groin wound Discharge Goals Goal(s): Therapeutic intervention Activity Recommendations Activity Limitations: per Instructions/Follow-up section Anesthesia . Post Anesthesia Instructions: If you have had General Anesthesia or IV Sedation: * Do not drive today. * Resume driving when surgeon permits. * Do not make important decisions or sign legal documents today. * Call surgeon for: 1. Temperature elevations greater than 101 degrees F. 2. Uncontrollable pain. 3. Excessive bleeding. 4. Persistent nausea and vomiting. 5. Medication intolerance (nausea, vomiting or rash). * For nausea and vomiting use only clear liquids such as: tea, soda, bouillon until nausea subsides, then gradually increase diet as tolerated. * If you have any concerns or questions, call your surgeon's office. If physician is unavailable and it is an emergency, call 911 or go to the nearest emergency room. . Instructions / Follow-Up Instructions / Follow-Up Call [phone] to schedule a follow up appointment if one not already scheduled. ACTIVITY RECOMMENDATIONS: See Above SPECIAL CARE INSTRUCTIONS: Call your doctor if: * Temperature above 101 degrees * Pain not relieved by pain medicine ordered * There is increased drainage or redness from any incision * You have any unanswered questions or concerns. Diet Recommendations Recommended Home Diet: resume previous diet Procedures Procedures Performed: Right Groin Debridement and Irrigation Pending Studies Studies pending at discharge: no Medical Emergencies . Who to Call and When: Medical Emergencies: If at any time you feel your situation is an emergency, please call 911 immediately. . Non-Emergent Contact Non-Emergency issues call your: Surgeon . . "Provider Documentation" section prepared by Jay Hopper. .
--- NOTE | 2017-05-07 11:36 | Anesthesiology Progress Note ---
Anesthesia Post Op Note Date & Time May 07, 2017 at 11:35 Vital Signs Pain Intensity: 0 Vital Signs Past 12 Hours Date Time Temp Pulse Resp B/P (MAP) Pulse Ox O2 Delivery O2 Flow Rate FiO2 05/07/17 11:25 84 18 149/85 94 Room Air 05/07/17 11:15 83 18 133/94 100 Oxymask 10 05/07/17 11:05 83 18 140/88 100 Oxymask 10 05/07/17 10:56 36.7 80 16 144/94 100 Oxymask 10 05/07/17 09:12 36.7 63 18 192/86 (121) 97 Room Air Notes Mental Status: alert / awake / arousable, participated in evaluation Pt Amnestic to Procedure: Yes Nausea / Vomiting: adequately controlled Pain: adequately controlled Airway Patency, RR, SpO2: stable & adequate BP & HR: stable & adequate Hydration State: stable & adequate Anesthetic Complications: no major complications apparent Anesthetic Complications: Dressing clean, dry and intact and without any evidence of bleeding. Second stage recovery with instructions per Dr. Hopper to hold patient until 1300 to ensure no bleeding occurs from the incision site.
--- NOTE | 2017-05-07 11:37 | OPERATIVE REPORT ---
DATE OF OPERATION: 05/07/2017 PREOPERATIVE DIAGNOSIS: Deep surgical site infection. POSTOPERATIVE DIAGNOSIS: Same. PROCEDURE: Incision and debridement of right groin surgical site infection and primary closure. SURGEON: Dr. Jay Hopper. BUSINESS OFFICE TECHNOLOGY INSTRUCTOR: Dr. Ludy Roque and Mayi Evans PA-C. ANESTHESIA: General anesthesia with LMA. ESTIMATED BLOOD LOSS: 5. COMPLICATIONS: None apparent. CONDITION: Stable, transferred to PACU. SPECIMEN: Wound cultures. INDICATIONS: Shanti Dillon is an 82-year-old female who underwent previous revision of her endovascular aortic repair with an aorto-uni device, thoracic cuff and fem-fem bypass for an endoleak and expanding aneurysmal sac. She presented to the office with surgical site infection, and due to proximity to the femoral graft, we decided to bring her to the operating room for incision and surgical debridement. She agreed to the above procedure. PROCEDURE IN DETAIL: The patient was brought into the operative suite. She was prepped and draped in the usual fashion. A timeout occurred. She had an opening with a fibrinous exudate at the proximal aspect of her incision, it was approximately 2 cm in diameter. An elliptical incision was made around this and this was completely excised out. The wound was then irrigated with a liter of antibiotic-impregnated saline, hemostasis was obtained and the wound was then closed with 3-0 vertical mattresses. The patient was then extubated and transported to PACU in stable condition. She tolerated the procedure well. Dr. Jay Hopper was present and scrubbed for the entirety of this case. I attest to the content of the Intraoperative Record and any orders documented therein. Any exception s are noted below.
[2017-05-07 11:45] VITALS: BP 150/82; PULSE 80; TEMP 36.3; O2SAT 93
[2017-05-07 12:17] VITALS: BP 158/91; PULSE 77; O2SAT 96
--- NOTE | 2017-05-12 10:49 | EDITING REQUIRED CODING QUERY ---
DEBRIDEMENT DOCUMENTATION To promote full compliance with coding requirements relating to patient care, physician participation is requested in all cases of teacher aide clerical uncertainty. Please assist us with the question(s) below: Please place an X in the parenthesis (x). If other, please document the finding: Please provide further clarification for the debridement performed: Instrument Used: ( x) Scissors ( x) Scalpel ( ) Curette ( ) Other (please specify): Depth of Debridement: ( ) Skin (x ) Skin and Subcutaneous Tissue ( ) Skin, Subcutaneous Tissue and Muscle ( ) Skin, Subcutaneous Tissue, Muscle and Bone ( ) Other (please specify): Thank you for your assistance, Leatha Ruiz - Manual Arts Therapy Teacher
== END 2017-05-07 13:00 | disposition home or self-care (01) ==
LOC: C.ACU 08:19
PROVIDERS: ATTEND Surgery Vascular Surgery
DX: T81.4XXA Infection following a procedure, initial encounter (principal); T81.31XA Disruption of external operation (surgical) wound, not elsewhere classified, initial encounter; Y83.8 Other surgical procedures as the cause of abnormal reaction of the patient, or of later complication, without mention of misadventure at the time of the procedure; I12.9 Hypertensive chronic kidney disease with stage 1 through stage 4 chronic kidney disease, or unspecified chronic kidney disease; N18.9 Chronic kidney disease, unspecified; J44.9 Chronic obstructive pulmonary disease, unspecified; G47.33 Obstructive sleep apnea (adult) (pediatric); E03.9 Hypothyroidism, unspecified; K58.9 Irritable bowel syndrome, unspecified; G25.81 Restless legs syndrome; Z88.5 Allergy status to narcotic agent; Z88.0 Allergy status to penicillin; Z88.8 Allergy status to other drugs, medicaments and biological substances; Z99.89 Dependence on other enabling machines and devices; Z87.891 Personal history of nicotine dependence; Z90.49 Acquired absence of other specified parts of digestive tract

== ENCOUNTER → 2017-05-22 | Outpatient (CLI) | payer OTHER, MEDICARE ==
[~2017-05-22] MED LIST changes: -CLINDAMYCIN 600 MG/54 ML D5W IV SCH; -LACTATED RINGER'S 1000ML 1,000 ML IV SCH; +TRAM-10 PO
--- NOTE | 2017-05-22 16:11 | DIAGNOSTIC IMAGING REPORT ---
ABDOMEN AND PELVIS CT WITHOUT CONTRAST CT DOSE: 1166.21 mGycm HISTORY: POST AAA, RT GROIN POSSIBLE INFECTION TECHNIQUE: Multiaxial CT images of the abdomen and pelvis were performed without contrast. A dose lowering technique was utilized adhering to the principles of ALARA. COMPARISON STUDY: Abdomen and pelvis CTA 12/30/2016. FINDINGS: Stable 5 mm nodule within the right lower lobe. Mild interstitial thickening at the lung bases. No pneumoperitoneum. No pneumatosis. No fractures within the visualized osseous structures. Prior mesh repair of a ventral/umbilical hernia. Extensive fat stranding surrounding the femorofemoral bypass graft, right greater than left. There is also subcutaneous fat stranding within the lower anterior abdominal wall. Nodular contour to the liver consistent with cirrhosis. Cholecystectomy. The liver, spleen, pancreas, and adrenal glands are unremarkable. Bilateral peripelvic cysts. There is a 1 cm stone within the lower pole of the left kidney. No hydronephrosis. Punctate focus of gas within the bladder lumen. The uterus is surgically absent. A few colonic diverticula. No bowel wall thickening or obstruction. No retroperitoneal lymphadenopathy. There again noted postoperative changes consistent with stent graft repair of an abdominal aortic aneurysm. The aneurysm sac is slightly increased in size and currently measures 6.8 x 6.8 cm. This previous measured 6.8 x 6.5 cm. There is mild fat stranding surrounding the aneurysm sac. This is new from the prior study. IMPRESSION: 1. Extensive fat stranding surrounding the femorofemoral bypass graft as well as subcutaneous fat stranding within the lower anterior abdominal wall. In the absence of recent surgery this is suspicious for an infected graft. No loculated fluid collections to suggest an abscess. 2. There is also been interval development of mild fat stranding surrounding the abdominal aortic aneurysm. This is also suspicious for an infected graft. 3. The abdominal aortic aneurysm has slightly increased in size and measures 6.8 x 6.8 cm. Therefore, this likely represents an underlying endoleak which was described on the prior study. Electronically signed by: Nilesh Hood M.D. 05/22/2017 4:09 PM Dictated Date/Time: 05/22/2017 3:57 PM
== END | disposition home or self-care (01) ==
LOC: C.CTS 15:34
PROVIDERS: ATTEND Physician Assistant
DX: Z98.890 Other specified postprocedural states (principal)